=== PATIENT | female | born 1970 | race Caucasian/White ===

== ENCOUNTER 2022-04-14 14:22 | Inpatient (IN) | payer MEDICARE, MEDICAID, SELFPAY ==
[2022-04-14] VITALS (45 sets, daily range): BP systolic 105–157; BP diastolic 56–83; PULSE 87–113; RESP 11–25; TEMP 36.4–36.8; O2SAT 93–100; BMI 25.8; BMI 27.4
--- NOTE | 2022-04-14 14:35 | DI.RAD.S_ITS ---
PROCEDURE: XR CHEST 1V INDICATIONS: suspected sepsis TECHNIQUE: One view of the chest was acquired. COMPARISON: None. FINDINGS: Surgical changes and devices: None. Lungs and pleura: 7 mm nodularity projects over the end of the right 5th rib. Remainder of the lungs and pleural spaces are clear. Mediastinum: Mediastinal contours appear normal. Heart size is normal. Bones and chest wall: No suspicious bony lesions. Overlying soft tissues appear unremarkable. Convex right thoracolumbar scoliosis IMPRESSION: No acute infiltrate, pleural effusion or pneumothorax. Possible small nodule projects over the end of the right 5th rib, may be artifactual. Consider interval follow-up 3 month chest x-ray or CT Approved by: Steve Faustin M.D. on 04/14/2022 at 15:54
[2022-04-14] MEDS: SODIUM CHLORIDE 0.9% 1,000 ML 1000 ML IV (14:45)
[2022-04-14 14:58] LABS: COVID19 -Nasal RAPID Negative (Negative)
[2022-04-14 14:59] LABS: Add Manual Diff / Slide Review NO; Basophils Absolute Auto 100 /uL (0-100); Basophils Percent Auto 0.7 % (0-2); Eosinophils Absolute Auto 0 /uL (0-450); Eosinophils Percent Auto 0.1 % (2-4); Hematocrit 24.9 % (36-46); Hemoglobin 7.9 g/dL (12.0-16.0); Lymphocytes Absolute Auto 1400 /uL (1100-4500); Lymphocytes Percent Auto 9.8 % (25-40); Mean Corpuscular HGB Conc 31.7 % (30-36); Mean Corpuscular Hemoglobin 27.7 PG (26-34); Mean Corpuscular Volume 87.4 fL (80-100); Monocytes Absolute Auto 400 /uL (0-900); Monocytes Percent Auto 2.9 % (3-14); Neutrophils Absolute Auto 12400 /uL (1500-7000); Neutrophils Percent Auto 86.5 % (50-75); Platelet Count 618 X10^3/uL (150-400); Red Blood Cell Count 2.85 X10^6/uL (4.0-5.2); Red Cell Distribution Width 19.7 % (11.6-14.8); White Blood Cell Count 14.4 X10^3/uL (4.5-11.0)
[2022-04-14 15:07] LABS: Prothrombin Time 11.4 SECONDS (10.1-12.7)
--- NOTE | 2022-04-14 15:08 | ED_ITS ---
HPI - Wound/Laceration General Chief Complaint: Wound/Laceration Stated Complaint: weakness, barely move,open wound LT arm & leg Time Seen by Provider: 04/14/22 14:55 Source: patient and family Mode of arrival: Wheelchair Limitations: no limitations History of Present Illness HPI narrative: Patient is a 52-year-old female. History of hypothyroidism. Approximately 1 year ago she had an extensive issue of a skin infection that required debridement. She states that it was necrotizing fasciitis. She spent an ex tended amount of time in the hospital. It was located in her left shoulder. She was on antibiotics. Since that time she states that the wound across her left shoulder has healed but there is a small amount that continues to have issues with healing. She feels like this areas become more painful and that the discomfort and the look of the wounds has worsened over the past couple days. She is also having issues with an open wound on her left leg. She stated that this started after she had a ?bite? from an unknown insect. This was about the time as the issue with her left shoulder. She did not have debridement in this area. She thinks that this wound has been worsening as well. She generally states she does not feel very well. Is having weakness. Related Data Allergies Allergy/AdvReac Type Severity Reaction Status Date / Time levothyroxine Allergy Unknown Verified 04/14/22 15:04 NSAIDS (Non-Steroidal AdvReac Severe Heartburn Verified 04/14/22 15:04 Anti-Inflamma Review of Systems Review of Systems ROS Unobtainable: All systems reviewed & are unremarkable except as noted in HPI and below Patient History Medical History Hypothyroidism Necrotizing fasciitis Paget disease of bone Surgical History (Updated 04/14/22 @ 19:04 by Gerardo Whatley DO) H/O thyroidectomy S/P debridement Family History (Updated 04/14/22 @ 19:04 by Gerardo Whatley DO) Father No pertinent past medical history Mother No pertinent past medical history Exam Initial Vital Signs Initial Vital Signs: Vital Signs Temperature 98.2 F 04/14/22 14:22 Pulse Rate 113 H 04/14/22 14:22 Respiratory Rate 25 H 04/14/22 14:22 Blood Pressure 105/81 04/14/22 14:22 Pulse Oximetry 100 04/14/22 14:22 Oxygen Delivery Method 04/14/22 14:22 Const General: cooperative, comfortable and other (Appears chronically ill) HENMT Head: normal to inspection and normocephalic Resp Effort & Inspection: normal respiratory effort Auscultation: clear to auscultation bilaterally Cardio Rate: tachycardic Rhythm: regular rhythm GI Inspection: normal to inspection Palpation: soft and No tender Skin Other: Patient does have a large area of skin ulceration on the lateral aspect of the left lower leg. There is some minimal surrounding erythema. It is draining and does have a foul smell. There is no fluctuance. Patient also has multiple small areas of ulcerations on her left anterior shoulder. There is a well- healed surgical scar in this area consistent with her stated debridement history. There is surrounding erythema from this area as well. Does have some drainage. Also foul-smelling. Neuro General: patient alert, patient awake and moves all extremities Extrem General: normal to inspection and capillary refill normal Psych Appearance: disheveled Scores GCS Sukhdev coma scale eye opening: Spontaneous Churdan coma scale verbal response: Orientated Churdan coma scale motor response: Obey commands Sukhdev coma scale total score: 15 Course Orders Ordered: ED Orders 04/14/22 14:35 XR chest 1V Stat EKG-12 Lead Stat RT Consult Eval and Treat NOW 04/14/22 14:40 COVID19 -Nasal RAPID/Pre-Proc Stat 04/14/22 14:45 Complete Blood Count AUTO DIFF Stat Comprehensive Metabolic Panel Stat Lactate (Lactic Acid) Stat Lipase Stat Partial Thromboplastin Time Stat Procalcitonin Stat Prothrombin Time INR Stat 04/14/22 14:50 Blood Culture Stat 04/14/22 15:07 Wound Culture and Gram Stain Stat Wound Culture and Gram Stain Stat 04/14/22 15:08 XR humerus LT 2V Stat XR tibia fibula LT 2V Stat 04/14/22 18:28 Consult to General Surgery Stat CT UE LT w con Stat Discontinued Medications Sodium Chloride (Normal Saline 0.9%) 1,000 mls @ 1,000 mls/hr IV BOLUS ONE Stop: 04/14/22 15:34 Last Infusion: 04/14/22 15:52 Dose: 0 mls/hr Documented By: Admin: 04/14/22 14:45 Dose: 1,000 mls/hr Documented By: HARVEY Ceftriaxone Sodium 1,000 mg/ (Sodium Chloride) 100 mls @ 200 mls/hr IV NOW ONE Stop: 04/14/22 15:11 Last Infusion: 04/14/22 15:52 Dose: 0 mls/hr Documented By: Admin: 04/14/22 15:15 Dose: 200 mls/hr Documented By: SB Vancomycin HCl (Vancomycin) 1,000 mg in 200 mls @ 200 mls/hr IV NOW ONE Stop: 04/14/22 16:09 Last Infusion: 04/14/22 17:05 Dose: 0 mls/hr Documented By: Admin: 04/14/22 15:52 Dose: 200 mls/hr Documented By: HARVEY Clindamycin Phosphate (Cleocin) 900 mg in 50 mls @ 50 mls/hr IV NOW ONE Stop: 04/14/22 19:28 Last Admin: 04/14/22 19:14 Dose: 50 mls/hr Documented By: HARVEY Piperacillin Sod/Tazobactam (Sod 4.5 gm/ Sodium Chloride) 100 mls @ 200 mls/hr IV NOW ONE Stop: 04/14/22 18:29 Last Infusion: 04/14/22 19:13 Dose: 0 mls/hr Documented By: Admin: 04/14/22 18:36 Dose: 200 mls/hr Documented By: HARVEY Nicotine (Nicotine 14 Patch) 14 mg TOP NOW ONE Stop: 04/14/22 19:12 Last Admin: 04/14/22 19:44 Dose: 14 mg Documented By: HARVEY Oxycodone/Acetaminophen (Oxycodone/Acetaminophen 5/325 Tablet) 1 tab PO NOW ONE Stop: 04/14/22 16:21 Last Admin: 04/14/22 17:19 Dose: 1 tab Documented By: [facility] Oxycodone/Acetaminophen (Oxycodone/Acetaminophen 5/325 Tablet) 1 tab PO NOW ONE Stop: 04/14/22 19:12 Last Admin: 04/14/22 19:22 Dose: 1 tab Documented By: HARVEY Vital Signs Vital signs: Vital Signs - 8 hr 04/14/22 14:22 04/14/22 14:34 04/14/22 14:37 Temperature 98.2 F Pulse Rate 113 H 107 H Respiratory Rate 25 H Blood Pressure 105/81 105/81 Pulse Oximetry 100 99 Oxygen Delivery Method Room Air 04/14/22 14:40 04/14/22 14:47 04/14/22 14:47 Temperature Pulse Rate 110 H 106 H Respiratory Rate Blood Pressure 115/65 Pulse Oximetry 98 100 Oxygen Delivery Method 04/14/22 14:50 04/14/22 14:50 04/14/22 15:00 Temperature Pulse Rate 108 H Respiratory Rate Blood Pressure 116/66 122/71 Pulse Oximetry 99 Oxygen Delivery Method 04/14/22 15:00 04/14/22 15:10 04/14/22 15:10 Temperature Pulse Rate 111 H 105 H Respiratory Rate 22 Blood Pressure 121/62 Pulse Oximetry 100 99 Oxygen Delivery Method Room Air 04/14/22 15:20 04/14/22 15:20 04/14/22 15:30 Temperature Pulse Rate 104 H Respiratory Rate Blood Pressure 126/64 126/56 L Pulse Oximetry 99 Oxygen Delivery Method 04/14/22 15:30 04/14/22 15:40 04/14/22 15:40 Temperature Pulse Rate 106 H 102 H Respiratory Rate Blood Pressure 136/63 Pulse Oximetry 100 99 Oxygen Delivery Method 04/14/22 15:50 04/14/22 15:50 04/14/22 16:00 Temperature Pulse Rate 100 H Respiratory Rate 11 L Blood Pressure 132/68 130/64 Pulse Oximetry 97 Oxygen Delivery Method 04/14/22 16:00 04/14/22 16:10 04/14/22 16:20 Temperature Pulse Rate 100 H 100 H 97 H Respiratory Rate 12 14 16 Blood Pressure Pulse Oximetry 98 99 97 Oxygen Delivery Method Room Air 04/14/22 16:30 04/14/22 16:40 04/14/22 16:50 Temperature Pulse Rate 97 H 97 H 98 H Respiratory Rate 13 18 17 Blood Pressure Pulse Oximetry 98 96 95 Oxygen Delivery Method 04/14/22 17:00 04/14/22 17:03 04/14/22 17:03 Temperature Pulse Rate 97 H 99 H Respiratory Rate 18 16 Blood Pressure 126/67 Pulse Oximetry 94 96 Oxygen Delivery Method 04/14/22 17:10 04/14/22 17:20 04/14/22 17:30 Temperature Pulse Rate 96 H 97 H Respiratory Rate 17 16 Blood Pressure 142/66 H Pulse Oximetry 95 96 Oxygen Delivery Method 04/14/22 17:30 04/14/22 17:40 04/14/22 17:50 Temperature Pulse Rate 94 H 93 H 95 H Respiratory Rate 20 17 23 Blood Pressure Pulse Oximetry 93 95 94 Oxygen Delivery Method 04/14/22 18:00 04/14/22 18:00 04/14/22 18:10 Temperature Pulse Rate 93 H 101 H Respiratory Rate 18 18 Blood Pressure 132/70 Pulse Oximetry 95 98 Oxygen Delivery Method 04/14/22 18:20 04/14/22 18:30 04/14/22 18:30 Temperature Pulse Rate 100 H 110 H Respiratory Rate 25 H Blood Pressure 157/83 H Pulse Oximetry 97 98 Oxygen Delivery Method 04/14/22 18:40 04/14/22 18:55 04/14/22 18:57 Temperature Pulse Rate 98 H 101 H 97 H Respiratory Rate 23 13 Blood Pressure Pulse Oximetry 98 98 99 Oxygen Delivery Method 04/14/22 18:57 04/14/22 19:00 04/14/22 19:00 Temperature Pulse Rate 98 H Respiratory Rate Blood Pressure 136/72 145/72 H Pulse Oximetry 99 Oxygen Delivery Method 04/14/22 19:10 04/14/22 19:20 04/14/22 19:30 Temperature Pulse Rate 92 H 93 H Respiratory Rate Blood Pressure 138/72 Pulse Oximetry 98 98 Oxygen Delivery Method 04/14/22 19:30 04/14/22 19:40 Temperature Pulse Rate 89 90 Respiratory Rate 12 Blood Pressure Pulse Oximetry 98 97 Oxygen Delivery Method MDM - Wound/Laceration Lab Data Attestation: I reviewed the patient's lab results. 04/14/22 14:45 04/14/22 14:45 Labs: Lab Results 04/14/22 04/14/22 04/14/22 Range/Units 14:40 14:45 14:45 WBC 14.4 H (4.5-11.0) X10^3/uL RBC 2.85 L (4.0-5.2) X10^6/uL Hgb 7.9 L (12.0-16.0) g/dL Hct 24.9 L (36-46) % MCV 87.4 (80-100) fL MCH 27.7 (26-34) PG MCHC 31.7 (30-36) % RDW 19.7 H (11.6-14.8) % Plt Count 618 H (150-400) X10^3/uL Neut % (Auto) 86.5 H (50-75) % Lymph % (Auto) 9.8 L (25-40) % Kemper % (Auto) 2.9 L (3-14) % Eos % (Auto) 0.1 L (2-4) % Baso % (Auto) 0.7 (0-2) % Neut # (Auto) 35380 H (1118-1816) /uL Lymph # (Auto) 1400 (4450-9482) /uL Kemper # (Auto) 400 (0-900) /uL Eos # (Auto) 0 (0-450) /uL Baso # (Auto) 100 (0-100) /uL PT 11.4 (10.1-12.7) SECONDS INR 1.0 (0.9-1.3) APTT 29 (26-36) SECONDS Sodium (137-145) mmol/L Potassium (3.4-5.1) mmol/L Chloride (98-107) mmol/L Carbon Dioxide (22-32) mmol/L BUN (7-17) mg/dL Creatinine (0.52-1.04) mg/dL Estimated GFR (>60) mL/min BUN/Creatinine Ratio (6-22) Glucose (70-100) mg/dL Lactate (0.7-2.1) mmol/L Calcium (8.4-10.2) mg/dL Total Bilirubin (0.2-1.3) mg/dL AST (14-36) IU/L ALT (<35) IU/L Alkaline Phosphatase (38-126) U/L Total Protein (6.3-8.2) g/dL Albumin (3.5-5.0) g/dL Globulin (1.7-4.1) g/dL Albumin/Globulin Ratio (1.0-2.8) Lipase (23-300) U/L Procalcitonin (<0.5) ng/mL SARS-CoV-2 (PCR) Negative (Negative) 04/14/22 04/14/22 Range/Units 14:45 14:45 WBC (4.5-11.0) X10^3/uL RBC (4.0-5.2) X10^6/uL Hgb (12.0-16.0) g/dL Hct (36-46) % MCV (80-100) fL MCH (26-34) PG MCHC (30-36) % RDW (11.6-14.8) % Plt Count (150-400) X10^3/uL Neut % (Auto) (50-75) % Lymph % (Auto) (25-40) % Kemper % (Auto) (3-14) % Eos % (Auto) (2-4) % Baso % (Auto) (0-2) % Neut # (Auto) (3768-6305) /uL Lymph # (Auto) (4006-3499) /uL Kemper # (Auto) (0-900) /uL Eos # (Auto) (0-450) /uL Baso # (Auto) (0-100) /uL PT (10.1-12.7) SECONDS INR (0.9-1.3) APTT (26-36) SECONDS Sodium 140 (137-145) mmol/L Potassium 4.4 (3.4-5.1) mmol/L Chloride 101 (98-107) mmol/L Carbon Dioxide 30 (22-32) mmol/L BUN 14 (7-17) mg/dL Creatinine 0.88 (0.52-1.04) mg/dL Estimated GFR > 60 (>60) mL/min BUN/Creatinine Ratio 15.9 (6-22) Glucose 118 H (70-100) mg/dL Lactate 1.8 (0.7-2.1) mmol/L Calcium 8.8 (8.4-10.2) mg/dL Total Bilirubin 0.2 (0.2-1.3) mg/dL AST 24 (14-36) IU/L ALT 20 (<35) IU/L Alkaline Phosphatase 97 (38-126) U/L Total Protein 6.5 (6.3-8.2) g/dL Albumin 3.6 (3.5-5.0) g/dL Globulin 2.9 (1.7-4.1) g/dL Albumin/Globulin Ratio 1.2 (1.0-2.8) Lipase 180 (23-300) U/L Procalcitonin 0.38 (<0.5) ng/mL SARS-CoV-2 (PCR) (Negative) Imaging Data CT UE: Radiologist's Impression: [address] [address] [address] Scan Report Signed Patient: Vargas,Nabila MR#: [id number] : 1970 Acct:[id number] Age/Sex: 52 / F Date of Service: 04/14/22 Loc: ED Accession Number: [id number] ?? Procedure: CT UE LT w con Ordering Provider: James Martinez D.O. PROCEDURE:? CT UE LT W CON ? INDICATIONS:? eval for abscess left shoulder region.? Soft tissue ulceration seen on same day radiographs of the left humerus ? TECHNIQUE:? After the administration of intravenous contrast, 3 mm axial sections acquired of the left shoulder , with coronal and sagittal reformats. ? ? COMPARISON:? [facility], CR, XR HUMERUS LT 2V, 04/14/2022, 15:14. ? FINDINGS:? Image quality:? Adequate ? Bones:? No acute fracture visualized ? Soft tissues:? No soft tissue abscess/drainable fluid collection identified.? Areas of soft tissue ulceration/wounds are present about the proximal left humerus with associated fat stranding/edema.? Tiny focus of soft tissue gas present anterior upper arm (). ? IMPRESSION:? No soft tissue abscess/drainable fluid collection identified about the left shoulder.? If symptoms persist, follow-up CT may be helpful for further evaluation. ? Tiny focus of soft tissue gas present anterior left upper arm, nonspecific.? Clinical correlation for necrotizing soft tissue infection may be helpful. ? ? Dictated by: Donal Siddiqui M.D. on 04/14/2022 at 19:29 ? ? Approved by: Donal Siddiqui M.D. on 04/14/2022 at 19:36? Extremity x-ray #1: Radiologist's Impression: [address] [address] XRay Report Signed Patient: Nabila Vargas MR#: [id number] : 1970 Acct:[id number] Age/Sex: 52 / F Date of Service: 04/14/22 Loc: ED Accession Number: [id number] ?? Procedure: XR tibia fibula LT 2V Ordering Provider: James Martinez D.O. PROCEDURE:? XR TIBIA FIBULA LT 2V ? INDICATIONS:? eval for free air ? TECHNIQUE:? 2 views of the tibia and fibula were acquired.? ? COMPARISON:? None. ? FINDINGS:? ? Bones:? No fractures or dislocations.? No suspicious bony lesions.? Arthritic changes noted at the knee. Generalized decrease in osseous mineralization noted. ? Soft tissues:? No suspicious soft tissue calcifications or masses.? ? IMPRESSION:? ? No evidence of soft tissue air, fracture or foreign body ? ? ? Approved by: Steve Faustin M.D. on 04/14/2022 at 15:39? Extremity x-ray #2: Radiologist's Impression: [address] [address] XRay Report Signed Patient: Nabila Vargas MR#: [id number] : 1970 Acct:[id number] Age/Sex: 52 / F Date of Service: 04/14/22 Loc: ED Accession Number: [id number] ?? Procedure: XR humerus LT 2V Ordering Provider: James Martinez D.O. PROCEDURE:? XR HUMERUS LT 2V ? INDICATIONS:? eval for free air ? TECHNIQUE:? 2 views of the humerus were acquired.? ? COMPARISON:? None. ? FINDINGS:? ? Bones:? No fractures or dislocations.? No suspicious bony lesions.? ? Soft tissues:? No suspicious soft tissue calcifications.? ? IMPRESSION:? ? Soft tissue ulcer noted over the deltoid.? No evidence of intrasubstance soft tissue air? Approved by: Steve Faustin M.D. on 04/14/2022 at 15:44? Extremity x-ray #3: Radiologist's Impression: [address] [address] XRay Report Signed Patient: Nabila Vargas MR#: [id number] : 1970 Acct:[id number] Age/Sex: 52 / F Date of Service: 04/14/22 Loc: ED Accession Number: [id number] ?? Procedure: XR chest 1V Ordering Provider: James Martinez D.O. PROCEDURE:? XR CHEST 1V ? INDICATIONS:? suspected sepsis ? TECHNIQUE:? One view of the chest was acquired.? ? COMPARISON:? None. ? FINDINGS:? ? Surgical changes and devices:? None.? ? Lungs and pleura:? 7 mm nodularity projects over the end of the right 5th rib.? Remainder of the lungs and pleural spaces are clear. ? Mediastinum:? Mediastinal contours appear normal.? Heart size is normal.? ? Bones and chest wall:? No suspicious bony lesions.? Overlying soft tissues appear unremarkable.? Convex right thoracolumbar scoliosis ? IMPRESSION:? ? No acute infiltrate, pleural effusion or pneumothorax. ? Possible small nodule projects over the end of the right 5th rib, may be sea factual.? Consider interval follow-up 3 month chest x-ray or CT ? ? Approved by: Steve Faustin M.D. on 04/14/2022 at 15:54? ECG Data Attestation: I personally reviewed and interpreted this ECG as follows: Interpretation: Sinus tachycardia Ventricular rate 103 Normal axis Normal QRS Normal QTC No ST T wave changes MDM Narrative Medical decision making narrative: The patient does appear chronically ill. She was tachycardic upon arrival but afebrile. Cultures were obtained. Antibiotics started. Patient is not hypotensive nor dehydrated will hold on the 30 cc/kilos of fluid. Cultures were obtained the wounds. We were able to obtain records from her previous facility does appear that in August of last year she spent an extended period of time at [facility] where she was diagnosed with necrotizing fasciitis. She would an extensive debridement of her left shoulder. It appears that the surgical wound from this area has not completely healed. Somewhat of a difficult time determining when the left lower extremity ulceration started. Apparently this started at similar time as her left upper extremity. The appearance today shows that these wounds are not new but have potentially been worsening over the past couple days. They are very foul-smelling. Cultures were obtained. X-rays do not show any signs of free air. I did discuss the case with Dr. Quintana on-call for General surgery who stated that the patient could be admitted to the medicine service and he would evaluate the patient for potential debridement. I then discussed the case with Dr. Whatley on-call for hospitalist who evaluated the patient here in the emergency department. He requested a CT scan of the left upper extremity. The report this is noted. I did discuss the report of air from the CT scan. This was nonspecific and small. I do have low suspicion for necrotizing fasciitis. He stated that there was still no emergent need for debridement and he would still see the patient after admission. We will admit for further evaluation and treatment. Discharge Plan Departure Patient Disposition: Admitted As Inpatient Clinical Impression: Abscess, Skin ulcer
--- NOTE | 2022-04-14 15:08 | DI.RAD.S_ITS ---
PROCEDURE: XR HUMERUS LT 2V INDICATIONS: eval for free air TECHNIQUE: 2 views of the humerus were acquired. COMPARISON: None. FINDINGS: Bones: No fractures or dislocations. No suspicious bony lesions. Soft tissues: No suspicious soft tissue calcifications. IMPRESSION: Soft tissue ulcer noted over the deltoid. No evidence of intrasubstance soft tissue air Approved by: Steve Faustin M.D. on 04/14/2022 at 15:44
--- NOTE | 2022-04-14 15:08 | DI.RAD.S_ITS ---
PROCEDURE: XR TIBIA FIBULA LT 2V INDICATIONS: eval for free air TECHNIQUE: 2 views of the tibia and fibula were acquired. COMPARISON: None. FINDINGS: Bones: No fractures or dislocations. No suspicious bony lesions. Arthritic changes noted at the knee. Generalized decrease in osseous mineralization noted. Soft tissues: No suspicious soft tissue calcifications or masses. IMPRESSION: No evidence of soft tissue air, fracture or foreign body Approved by: Steve Faustin M.D. on 04/14/2022 at 15:39
[2022-04-14 15:09] LABS: PTT Partial Thromboplastin Tim 29 SECONDS (26-36)
[2022-04-14 15:14] LABS: Lactate (Lactic Acid) 1.8 mmol/L (0.7-2.1)
[2022-04-14 15:15] LABS: Alanine Aminotransferase 20 IU/L (<35); Albumin 3.6 g/dL (3.5-5.0); Albumin Globulin Ratio 1.2 (1.0-2.8); Alkaline Phosphatase 97 U/L (38-126); Aspartate Aminotransferase 24 IU/L (14-36); BUN Creatinine Ratio 15.9 (6-22); Bilirubin Total 0.2 mg/dL (0.2-1.3); Blood Urea Nitrogen 14 mg/dL (7-17); Calcium 8.8 mg/dL (8.4-10.2); Carbon Dioxide 30 mmol/L (22-32); Chloride 101 mmol/L (98-107); Estimated Glomerular Filt Rate > 60 mL/min (>60); Globulin 2.9 g/dL (1.7-4.1); Glucose 118 mg/dL (70-100); HEMOLYSIS < 15 (0-50); Lipase 180 U/L (23-300); Potassium 4.4 mmol/L (3.4-5.1); Sodium 140 mmol/L (137-145); Total Protein 6.5 g/dL (6.3-8.2)
[2022-04-14] MEDS: cefTRIAXone 1,000 MG in SODIUM CHLORIDE 0.9% 100 ML 200 MG IV (15:15)
[2022-04-14 15:32] LABS: Procalcitonin 0.38 ng/mL (<0.5)
[2022-04-14] MEDS: VANCOMYCIN 1,000 MG/200 ML PIGGYBACK 200 MG IV (15:52)
[2022-04-14] MEDS: OXYCODONE/ACETAMINOPHEN 5/325 TABLET 1 TAB PO ×2 (17:19→19:22)
--- NOTE | 2022-04-14 18:28 | DI.CT.S_ITS ---
PROCEDURE: CT UE LT W CON INDICATIONS: eval for abscess left shoulder region. Soft tissue ulceration seen on same day radiographs of the left humerus TECHNIQUE: After the administration of intravenous contrast, 3 mm axial sections acquired of the left shoulder , with coronal and sagittal reformats. COMPARISON: [facility], CR, XR HUMERUS LT 2V, 04/14/2022, 15:14. FINDINGS: Image quality: Adequate Bones: No acute fracture visualized Soft tissues: No soft tissue abscess/drainable fluid collection identified. Areas of soft tissue ulceration/wounds are present about the proximal left humerus with associated fat stranding/edema. Tiny focus of soft tissue gas present anterior upper arm (2/127). IMPRESSION: No soft tissue abscess/drainable fluid collection identified about the left shoulder. If symptoms persist, follow-up CT may be helpful for further evaluation. Tiny focus of soft tissue gas present anterior left upper arm, nonspecific. Clinical correlation for necrotizing soft tissue infection may be helpful. Dictated by: Donal Siddiqui M.D. on 04/14/2022 at 19:29 Approved by: Donal Siddiqui M.D. on 04/14/2022 at 19:36
[2022-04-14] MEDS: PIPERACILLIN/TAZO 4.5 GM in SODIUM CHLORIDE 0.9% 100 ML IV (18:36)
--- NOTE | 2022-04-14 19:01 | PM.HP.1 ---
History of Present Illness History of Present Illness Date Patient Seen: 04/14/22 Time Patient Seen: 18:30 Chief complaint: weakness, barely move,open wound LT arm & leg Narrative: This is a 52-year-old female a past medical history necrotizing fasciitis approximately 1 year ago, surgically managed at [facility] with residual wounds in her left leg and left arm, hypertension, hypothyroidism, paget's disease who presented with worsening pain of her left leg and left arm over the past 2 weeks as well as increases in the size of her wounds on her left leg and left arm. She has felt feverish at home, with worsening swelling with a past day or so and worsening pain in her left arm more so than her leg. Her left arm had been well healing, though she has a chronic wound it has increased in size, approximately double in the past couple of days with worsening erythema, and pain. Any purulence from her left arm. Her left leg wound has also approximately doubled in size, and she does complain of cramping like pain with exertion in her left leg. She is had a more difficult time walking due to the pain the last few days. The chest pain, abdominal pain, dysuria, or urinary frequency. Over the past few weeks she has felt more short of breath with exertion. She follows with Wound Care at [facility], and is being evaluated by Plastic surgery in [place] for her wounds. In the emergency room, the patient's vital signs were unremarkable, laboratory evaluation was notable for leukocytosis with WBC 14.4, anemia with hemoglobin of 7.9, and platelet count of 618. Coagulation studies were unremarkable. History is were unremarkable, procalcitonin was 0.38, and COVID-19 testing was negative. Initial radiographs were negative for gas or evidence of bone involvement. Given appearance of her left arm I asked for a CT scan of her left upper extremity which did show nonspecific gas, though this was discussed with the surgeon on-call who will see the morning and given her current clinical appearance this is not consistent with necrotizing fasciitis. Patient History Medical History Hypothyroidism Necrotizing fasciitis Paget disease of bone Surgical History H/O thyroidectomy S/P debridement Family & Social History Family History Father No pertinent past medical history Mother No pertinent past medical history Safety & Behavioral: Feels Safe in Current Yes Environment Been Physically Hurt or No Threatened By a Person Meds Home Medications and Allergies Allergies Allergy/AdvReac Type Severity Reaction Status Date / Time levothyroxine Allergy Unknown Verified 04/14/22 15:04 NSAIDS (Non-Steroidal AdvReac Severe Heartburn Verified 04/14/22 15:04 Anti-Inflamma Review of Systems Review of Systems Narrative: All other systems reviewed with the patient and are negative unless otherwise stated. Exam Vital Signs (past 8 hours): - 04/14/22 14:22 04/14/22 14:34 04/14/22 14:37 Temperature 98.2 F Pulse Rate 113 H 107 H Respiratory Rate 25 H Blood Pressure 105/81 105/81 Pulse Oximetry 100 99 Oxygen Delivery Method Room Air 04/14/22 14:40 04/14/22 14:47 04/14/22 14:47 Temperature Pulse Rate 110 H 106 H Respiratory Rate Blood Pressure 115/65 Pulse Oximetry 98 100 Oxygen Delivery Method 04/14/22 14:50 04/14/22 14:50 04/14/22 15:00 Temperature Pulse Rate 108 H Respiratory Rate Blood Pressure 116/66 122/71 Pulse Oximetry 99 Oxygen Delivery Method 04/14/22 15:00 04/14/22 15:10 04/14/22 15:10 Temperature Pulse Rate 111 H 105 H Respiratory Rate 22 Blood Pressure 121/62 Pulse Oximetry 100 99 Oxygen Delivery Method Room Air 04/14/22 15:20 04/14/22 15:20 04/14/22 15:30 Temperature Pulse Rate 104 H Respiratory Rate Blood Pressure 126/64 126/56 L Pulse Oximetry 99 Oxygen Delivery Method 04/14/22 15:30 04/14/22 15:40 04/14/22 15:40 Temperature Pulse Rate 106 H 102 H Respiratory Rate Blood Pressure 136/63 Pulse Oximetry 100 99 Oxygen Delivery Method 04/14/22 15:50 04/14/22 15:50 04/14/22 16:00 Temperature Pulse Rate 100 H Respiratory Rate 11 L Blood Pressure 132/68 130/64 Pulse Oximetry 97 Oxygen Delivery Method 04/14/22 16:00 04/14/22 16:10 04/14/22 16:20 Temperature Pulse Rate 100 H 100 H 97 H Respiratory Rate 12 14 16 Blood Pressure Pulse Oximetry 98 99 97 Oxygen Delivery Method Room Air 04/14/22 16:30 04/14/22 16:40 04/14/22 16:50 Temperature Pulse Rate 97 H 97 H 98 H Respiratory Rate 13 18 17 Blood Pressure Pulse Oximetry 98 96 95 Oxygen Delivery Method 04/14/22 17:00 04/14/22 17:03 04/14/22 17:03 Temperature Pulse Rate 97 H 99 H Respiratory Rate 18 16 Blood Pressure 126/67 Pulse Oximetry 94 96 Oxygen Delivery Method 04/14/22 17:10 04/14/22 17:20 04/14/22 17:30 Temperature Pulse Rate 96 H 97 H Respiratory Rate 17 16 Blood Pressure 142/66 H Pulse Oximetry 95 96 Oxygen Delivery Method 04/14/22 17:30 04/14/22 17:40 04/14/22 17:50 Temperature Pulse Rate 94 H 93 H 95 H Respiratory Rate 20 17 23 Blood Pressure Pulse Oximetry 93 95 94 Oxygen Delivery Method 04/14/22 18:00 04/14/22 18:00 04/14/22 18:10 Temperature Pulse Rate 93 H 101 H Respiratory Rate 18 18 Blood Pressure 132/70 Pulse Oximetry 95 98 Oxygen Delivery Method 04/14/22 18:20 04/14/22 18:30 04/14/22 18:30 Temperature Pulse Rate 100 H 110 H Respiratory Rate 25 H Blood Pressure 157/83 H Pulse Oximetry 97 98 Oxygen Delivery Method 04/14/22 18:40 04/14/22 18:55 Temperature Pulse Rate 98 H 101 H Respiratory Rate 23 Blood Pressure Pulse Oximetry 98 98 Oxygen Delivery Method Oxygen Delivery Method Room Air Narrative Exam Narrative: General:? Patient is well developed and well nourished, in no distress at this time. HEENT:? Normocephalic, atraumatic, extraocular muscles intact, oral pharynx is clear and mucous membranes are moist. Neck: supple and symmetric, trachea is midline, no cervical adenopathy. Negative for JVD Chest:? Normal AP diameter and contour without kyphoscoliosis, no tachypnea, equal chest rise bilaterally. Lungs:? CTA b/l no wheezing rhonchi or rales. Cardio:?RRR no m/r/g. Abdomen: S NT ND. No CVA tenderness. Musculoskeletal:? Muscle strength and tone are equal within normal limits, no deformity. Extremities: No edema or joint effusions. No cyanosis or clubbing. Skin:? Pale,? Warm to touch,dry and intact without rashes, ulcerations or petechiae.? Neuro:? Alert and orientated x3,? sensation to touch intact in all extremities, no gross deficits noted of cranial nerves. Psych:? Patient has a well-kept appearance, appropriate affect, mental status attitude thought context and judgment are appropriate for age. Objective Labs 04/14/22 14:45 04/14/22 14:45 Labs: Laboratory Results - last 24 hr 04/14/22 04/14/22 04/14/22 14:40 14:45 14:45 WBC 14.4 H RBC 2.85 L Hgb 7.9 L Hct 24.9 L MCV 87.4 MCH 27.7 MCHC 31.7 RDW 19.7 H Plt Count 618 H Neut % (Auto) 86.5 H Lymph % (Auto) 9.8 L [place] % (Auto) 2.9 L Eos % (Auto) 0.1 L Baso % (Auto) 0.7 Neut # (Auto) 58190 H Lymph # (Auto) 1400 [place] # (Auto) 400 Eos # (Auto) 0 Baso # (Auto) 100 PT 11.4 INR 1.0 APTT 29 Sodium Potassium Chloride Carbon Dioxide BUN Creatinine Estimated GFR BUN/Creatinine Ratio Glucose Lactate Calcium Total Bilirubin AST ALT Alkaline Phosphatase Total Protein Albumin Globulin Albumin/Globulin Ratio Lipase Procalcitonin SARS-CoV-2 (PCR) Negative 04/14/22 04/14/22 14:45 14:45 WBC RBC Hgb Hct MCV MCH MCHC RDW Plt Count Neut % (Auto) Lymph % (Auto) [place] % (Auto) Eos % (Auto) Baso % (Auto) Neut # (Auto) Lymph # (Auto) [place] # (Auto) Eos # (Auto) Baso # (Auto) PT INR APTT Sodium 140 Potassium 4.4 Chloride 101 Carbon Dioxide 30 BUN 14 Creatinine 0.88 Estimated GFR > 60 BUN/Creatinine Ratio 15.9 Glucose 118 H Lactate 1.8 Calcium 8.8 Total Bilirubin 0.2 AST 24 ALT 20 Alkaline Phosphatase 97 Total Protein 6.5 Albumin 3.6 Globulin 2.9 Albumin/Globulin Ratio 1.2 Lipase 180 Procalcitonin 0.38 SARS-CoV-2 (PCR) Assessment & Plan Assessment & Plan narrative: 1. Left lower extremity and left upper extremity infected wounds - continue zosyn at pseudomonal dosing, clinda, and vanc for possible necrotitzing infection given gas on CT, however it is very near her chronic wounds and seems less likely at this time. - monitor skin exam overnight - if worsening clinically call for possible debridement, case already discussed with on-call surgeon, whom plans to see in the AM currently 2. Hypertension, chronic - hold home medications for now given current infection. 3. hypothyroidism, chronic - continue home armor thyroid 4. Chronic pain, paget's - continue home prednisone 5. Anemia, unknown acuity Hg 7.9, continue to monitor, may be source of patient's recent dyspnea. Code: FULL, surrogate is patient's sposue DVT: lovenox daily I have utilized all available immediate resources to obtain, update, or review the patient's current medications. Additional history obtained via: patient's spouse, discussed with surgeon and ER provider. Time Spent With Patient Critical Care time: I spent a total of [] minutes of critical care time on this patient's care today; this time is exclusive of procedural time. Quality MIPS - Admit I confirm the patient?s Advance Care Plan is present, Code status is documented, Surrogate decision maker is in patient?s record [If Yes, STOP here]: Yes
[2022-04-14] MEDS: CLINDAMYCIN 900 MG/50 ML PIGGYBACK 50 MG IV (19:14)
[2022-04-14] MEDS: NICOTINE 14 PATCH 14 MG TOP (19:44)
[2022-04-14] MEDS: HYDROCODONE/ACET 5/325 TABLET 2 TAB PO (22:23)
--- NOTE | 2022-04-14 23:43 | PC.NURSE ---
Addendum entered by Katia Humphreys R.N. 04/14/22 23:50: Left shoulder wound with necrotic tissue all over it two deep areas. with 2nd wound to axilla area that's completely cover in eschar tissue Addendum entered by Katia Humphreys R.N. 04/14/22 23:44: Comment: Left shoulder wound Original Note:
--- NOTE | 2022-04-14 23:45 | PC.NURSE ---
Comment: Left Lateral leg wound with 1 cm tunneling around the right upper edges. with necrotic tissue around edges and moderate yellowish drainage.
[2022-04-15] VITALS (12 sets, daily range): BP systolic 125–159; BP diastolic 76–100; PULSE 94–116; RESP 12–23; TEMP 36.1–36.7; O2SAT 94–99; BMI 27.4
--- NOTE | 2022-04-15 | PATH_ITS ---
[facility] Accession Number: [id number] No. of containers..02 Tissue . 01 Material submitted: . PART A: leg - LEFT LOWER LEG BIOPSY PART B: shoulder - LEFT SHOULDER BIOPSY . 01 Diagnosis: A, B. Left Lower Leg and Left Shoulder, Biopsies: Ulcer bed with reactive changes, fibrosis, acute and chronic inflammation and scale crust. . Note: The changes are nonspecific. Clinicopathological correlation is advised for definitive diagnosis. MRV 04/22/20222 Local . 01 Electronically signed: . Lesvia Feliciano MD, Dermatopathologist NPI- [id number] . 01 Gross description: . Part A: LEFT LOWER LEG BIOPSY: Received in formalin is 1 piece of SEGMENT OF SKIN measuring 2.0 x 0.5 x 0.2 cm which is inked, serially sectioned and submitted in toto in 2 cassettes. Part B: LEFT SHOULDER BIOPSY: Received in formalin is 1 piece of SEGMENT OF SKIN measuring 0.9 x 0.5 x 0.2 cm which is inked, trisected and submitted in toto in 1 cassette. /CPE 04/16/2022 0516 Local . 01 Pathologist provided ICD-10: R23.9 . 01 CPT . 066759, 900592 Specimen Comment: A courtesy copy of this report has been sent to [facility] Performed at: 01 [facility] [address] [place] [address], [place], [place] [id number] MD Kranthi Sue MD Phone: [phone]
[2022-04-15] MEDS: PIPERACILLIN/TAZO 4.5 GM in SODIUM CHLORIDE 0.9% 100 ML IV ×3 (00:01→23:10)
[2022-04-15] MEDS: HYDROCODONE/ACET 5/325 TABLET 2 TAB PO ×2 (03:43→08:01)
[2022-04-15] MEDS: CLINDAMYCIN 600 MG/50 ML PIGGYBACK 50 MG IV ×3 (04:17→21:52)
[2022-04-15] MEDS: HYDROMORPHONE 1 MG INJ IV ×7 (05:25→23:09)
[2022-04-15] MEDS: VANCOMYCIN 1,250 MG/250 ML PIGGYBACK 250 MG IV ×2 (05:25→19:11)
[2022-04-15 06:22] LABS: Alanine Aminotransferase 17 IU/L (<35); Albumin Globulin Ratio 1.1 (1.0-2.8); Alkaline Phosphatase 62 U/L (38-126); Aspartate Aminotransferase 19 IU/L (14-36); BUN Creatinine Ratio 16.9 (6-22); Bilirubin Total 0.1 mg/dL (0.2-1.3); Blood Urea Nitrogen 12 mg/dL (7-17); Calcium 8.3 mg/dL (8.4-10.2); Carbon Dioxide 29 mmol/L (22-32); Chloride 103 mmol/L (98-107); Estimated Glomerular Filt Rate > 60 mL/min (>60); Globulin 2.7 g/dL (1.7-4.1); Glucose 92 mg/dL (70-100); HEMOLYSIS < 15 (0-50); Magnesium 2.2 mg/dL (1.6-2.3); Potassium 3.8 mmol/L (3.4-5.1); Sodium 141 mmol/L (137-145); Total Protein 5.7 g/dL (6.3-8.2)
[2022-04-15 06:27] LABS: Add Manual Diff / Slide Review NO; Basophils Absolute Auto 0 /uL (0-100); Basophils Percent Auto 0.3 % (0-2); Eosinophils Absolute Auto 200 /uL (0-450); Eosinophils Percent Auto 1.7 % (2-4); Hematocrit 23.2 % (36-46); Hemoglobin 7.3 g/dL (12.0-16.0); Lymphocytes Absolute Auto 2800 /uL (1100-4500); Lymphocytes Percent Auto 28.3 % (25-40); Mean Corpuscular HGB Conc 31.5 % (30-36); Mean Corpuscular Volume 88.8 fL (80-100); Monocytes Absolute Auto 700 /uL (0-900); Monocytes Percent Auto 7.1 % (3-14); Neutrophils Absolute Auto 6200 /uL (1500-7000); Neutrophils Percent Auto 62.6 % (50-75); Platelet Count 490 X10^3/uL (150-400); Red Blood Cell Count 2.61 X10^6/uL (4.0-5.2); Red Cell Distribution Width 19.7 % (11.6-14.8); White Blood Cell Count 9.9 X10^3/uL (4.5-11.0)
[2022-04-15 06:52] LABS: Hemoglobin A1C% w Est Avg Glu 4.9 % (4.0-6.0)
--- NOTE | 2022-04-15 09:31 | PC.NURSE ---
Lidocaine gel arrived from pharmacy and was about to be placed to wound bed as directed but arrived at same time as preop RN's to pick patient up- nurse states she is able to place lidocaine in preop area. Patient taken off unit for her procedure. Medicated with IV dilaudid for severe pain. Patient states she has no had anything to eat or drink since about 5am.
--- NOTE | 2022-04-15 10:09 | P.CONS_ITS ---
History of Present Illness Consult details Date Patient Seen: 04/15/22 Chief complaint: weakness, barely move,open wound LT arm & leg Reason for consult: Necrotic wound Requesting provider: Gerardo Whatley Narrative: Mrs. Vargas is a 52-year-old female who presented to the emergency room as she was feeling more tired than usual and started having some pretty severe pain in her wounds. She has a wound in her left upper extremity as well as 1 in her left lower extremity. The left lower is the more tender. She had been admitted and treated at [facility] in after having been transferred from [facility] in August for necrotizing soft tissue infection she underwent several debridements at that time and also a delayed primary closure of her left upper extremity. From her perspective she tells a story about being immune comprom ised and seeing some some bugs or ticks jump onto her and start this infection at a dog park. She did undergo evaluation for psychosis at [facility]. She has had a history of mouth ulcers and has been diagnosed with a Bechet syndrome, a rare autoimmune vasculitis, and also with psoriasis. There was a dermatology consult from 12/18/2021 at which biopsies were taken and possible diagnosis of pyoderma gangrenosum proposed. Pathology results from the biopsy support this diagnosis but are not completely diagnostic. In addition to what is noted above, there is a huge stack of medical records from [facility] which I have yet to review. Meds Home Medications and Allergies Home Medications Medication Instructions Recorded Confirmed Type Eliquis 5 mg PO BID 04/14/22 04/14/22 History albendazole 200 mg tablet 200 mg BID 04/14/22 04/14/22 History colchicine 0.6 mg tablet 0.69 mg DAILY 04/14/22 04/14/22 History duloxetine 60 mg capsule,delayed 60 mg PO DAILY 04/14/22 04/14/22 History release ivermectin 3 mg tablet 12 mg DAILY 04/14/22 04/14/22 History metoprolol succinate 25 mg 25 mg PO BID 04/14/22 04/14/22 History tablet,extended release 24 hr oxycodone-acetaminophen 10 mg-325 10 - 325 tab 5XD 04/14/22 04/14/22 History mg tablet pentoxifylline 400 mg 400 mg PO BID 04/14/22 04/14/22 History tablet,extended release prednisone 20 mg tablet 20 mg DAILY 04/14/22 04/14/22 History pregabalin 300 mg capsule 300 mg BID 04/14/22 04/14/22 History thyroid (pork) 30 mg tablet 120 mg DAILY 04/14/22 04/14/22 History ([place] Thyroid) Allergies Allergy/AdvReac Type Severity Reaction Status Date / Time levothyroxine Allergy Unknown Verified 04/14/22 15:04 NSAIDS (Non-Steroidal AdvReac Severe Heartburn Verified 04/14/22 15:04 Anti-Inflamma Exam Vital Signs (past 8 hours): - 04/15/22 04:04 04/15/22 07:52 04/15/22 09:48 Temperature 97.3 F L 96.9 F L 97.9 F Pulse Rate 99 H 94 H 96 H Respiratory Rate 17 23 16 Blood Pressure 125/86 159/91 H 142/76 H Pulse Oximetry 98 99 97 Oxygen Delivery Method Room Air Oxygen Flow Rate 0 0 Oxygen Delivery Method Room Air Oxygen Flow Rate 0 Narrative Exam Narrative: Patient is awake alert oriented and appears appropriate. I do not see any evidence of psychosis or mental illness evidence from my interactions with her at this time. She is in mild distress with pain. Her breathing is nonlabored on room air and her radial pulse is palpable. Her oral mucous membranes are moist She has a wound in her left upper extremity and 1 in her left lower extremity The left upper extremity wound has several areas of necrotic eschar on it and some seeping discharge. The left lower extremity wound has a little bit of fibrinous material and small amount of eschar but mostly is just an area where it looks like a skin blister or lesion was and is missing the epidermal layer otherwise it looks pretty clean . Objective Labs 04/15/22 05:52 04/15/22 05:52 Labs: Laboratory Results - last 24 hr 04/14/22 04/14/22 04/14/22 14:40 14:45 14:45 WBC 14.4 H RBC 2.85 L Hgb 7.9 L Hct 24.9 L MCV 87.4 MCH 27.7 MCHC 31.7 RDW 19.7 H Plt Count 618 H Neut % (Auto) 86.5 H Lymph % (Auto) 9.8 L [place] % (Auto) 2.9 L Eos % (Auto) 0.1 L Baso % (Auto) 0.7 Neut # (Auto) 05333 H Lymph # (Auto) 1400 [place] # (Auto) 400 Eos # (Auto) 0 Baso # (Auto) 100 PT 11.4 INR 1.0 APTT 29 Sodium Potassium Chloride Carbon Dioxide BUN Creatinine Estimated GFR BUN/Creatinine Ratio Glucose Hemoglobin A1c Lactate Calcium Magnesium Total Bilirubin AST ALT Alkaline Phosphatase Total Protein Albumin Globulin Albumin/Globulin Ratio Lipase Procalcitonin SARS-CoV-2 (PCR) Negative 04/14/22 04/14/22 04/15/22 14:45 14:45 05:52 WBC 9.9 RBC 2.61 L Hgb 7.3 L Hct 23.2 L MCV 88.8 MCH 28.0 MCHC 31.5 RDW 19.7 H Plt Count 490 H Neut % (Auto) 62.6 D Lymph % (Auto) 28.3 [place] % (Auto) 7.1 Eos % (Auto) 1.7 L Baso % (Auto) 0.3 Neut # (Auto) 6200 Lymph # (Auto) 2800 [place] # (Auto) 700 Eos # (Auto) 200 Baso # (Auto) 0 PT INR APTT Sodium 140 Potassium 4.4 Chloride 101 Carbon Dioxide 30 BUN 14 Creatinine 0.88 Estimated GFR > 60 BUN/Creatinine Ratio 15.9 Glucose 118 H Hemoglobin A1c Lactate 1.8 Calcium 8.8 Magnesium Total Bilirubin 0.2 AST 24 ALT 20 Alkaline Phosphatase 97 Total Protein 6.5 Albumin 3.6 Globulin 2.9 Albumin/Globulin Ratio 1.2 Lipase 180 Procalcitonin 0.38 SARS-CoV-2 (PCR) 04/15/22 04/15/22 05:52 05:52 WBC RBC Hgb Hct MCV MCH MCHC RDW Plt Count Neut % (Auto) Lymph % (Auto) [place] % (Auto) Eos % (Auto) Baso % (Auto) Neut # (Auto) Lymph # (Auto) [place] # (Auto) Eos # (Auto) Baso # (Auto) PT INR APTT Sodium 141 Potassium 3.8 Chloride 103 Carbon Dioxide 29 BUN 12 Creatinine 0.71 Estimated GFR > 60 BUN/Creatinine Ratio 16.9 Glucose 92 Hemoglobin A1c 4.9 Lactate Calcium 8.3 L Magnesium 2.2 Total Bilirubin 0.1 L AST 19 ALT 17 Alkaline Phosphatase 62 Total Protein 5.7 L Albumin 3.0 L Globulin 2.7 Albumin/Globulin Ratio 1.1 Lipase Procalcitonin SARS-CoV-2 (PCR) [facility] Medical History (Updated 04/15/22 @ 10:23 by Krystle Parker MD) Hypothyroidism Migraine Necrotizing fasciitis Paget disease of bone Pulmonary embolism Surgical History H/O thyroidectomy S/P debridement Family History Father No pertinent past medical history Mother No pertinent past medical history Social History household members: none Tobacco & Substance Use Smoking Status: Former smoker alcohol intake: former Assessment & Plan Assessment and plan (1) Skin ulcer: Status: Acute (2) Necrosis of surgical wound: Status: Acute Assessment & Plan narrative: I think based on the appearance of these wounds I would like to do some gentle debridement of the eschar/necrotic areas. I discussed this with the patient r isks just being poor wound healing or need for further procedures. Some bleeding is possible though given the superficial nature no anticipation of any major bleeding. She is on anticoagulants and I think that is fine to continue. She understands what I would like to do and the risks and would like to proceed with that. I think she is decisional. I would continue the antibiotics. I have reviewed a CT scan of the left upper extremity and I do not see any large abscess cavity that needs to be opened surgically. Time Spent With Patient Critical Care time: I spent a total of [] minutes of critical care time on this patient's care today; this time is exclusive of procedural time.
--- NOTE | 2022-04-15 11:46 | CM.DANOTE ---
DCP: Case received, EMR reviewed and met with patient. Introduced self and role. Was able to obtain information regarding patient's baseline activity status prior to hospitalization, as well as her current living situation. DCP assessment completed with information currently available. Patient is a 52 year old female who admitted yesterday evening to the care of the hospitalist team. PCP: Dr. Pearson. Payer: confirmed: Medicare/Medicaid out of state in [place]. Patient came to the hospital via private vehicle secondary to increased pain to her left shoulder, as well as an open wound on her left let. Patient has history of necrotizing fascitis, and had spent an extended amound of time in the hospital. Patient feels that the wounds have gotten worse. Patient currently goes to the wound clinic at [facility] weekly, and to [place], and is seeing plastic surgeon. Patient was admitted for her skin wounds, and should be having an I&D today. Met with patient in her room. She was laying in bed, alert and oriented, wound to left anterior lower leg opened. Confirmed that she resides in [facility] alone, but has a significant other, Dale Delarosa. At her baseline, she is independent. Asked her about insurance, for it was first noted as self pay and that her Medicaid . Confirmed that she has Medicare, her significant was going to bring in her cards, and her Medicaid is out of state, [place]. Updated admission counselors, who responded and have the insurance information. P: DCP to continue to follow, patient should be able to go home when stable, but will determine if she can discharge on oral antibiotics. Zully Pierson RN/Farmworker Grain Discharge Planning/Care Management CM Discharge Assessment Start: 04/15/22 11:44 Freq: Status: Active Protocol: Document 04/15/22 11:44 (Rec: 04/15/22 11:46 [id number]) Discharge Planning Assessment Assigned Professional Nursing Assistant Zully Pierson RN/Farmworker [employer] Advance Directives? No History Provided By Patient Prior Living Arrangements RV Household Members none Type of transporation used prior to Drives own vehicle admit Independent with ADL's Yes Is patient alert and oriented? Yes Caregiver for Another No Comment Patient to continue outpatient wound clinic services at [facility], and in [place] Comment Will have to see if patient will need to go home with IV ABO. Discharge Plan Home Transportation Arrangement Significant other, Fearing. Referrals Initiated None needed Whiteboard Updated in Patient Room with Yes name and ext. # of Professional Nursing Assistant Review Status In Process Next Review Type Continued Stay Review
[2022-04-15] MEDS: SODIUM CHLORIDE 0.9% FLUSH 10 ML IV (11:56)
--- NOTE | 2022-04-15 12:03 | PC.NURSE ---
Patient brought back up from preop, per Claribel in PACU no procedure was done. Patient arrived to room, tearful, states they did not believe her that she did not eat any food this morning. Reports she last had a few bites of applesauce with her medications about 5am. Patient in severe pain, in wounds, and reports its worse in left lower leg. Medicated with IV dilaudid per order. VSS, 99% on RA. Dr. Parker now at bedside meeting with patient.
--- NOTE | 2022-04-15 16:48 | PC.NURSE ---
Patient picked up for her procedure.
[2022-04-15] MEDS: LACTATED RINGERS 1,000 ML 42 ML IV (16:55)
--- NOTE | 2022-04-15 17:10 | SUR.HOLD ---
Dr Rabago at bedside. Has severe migraine and takes Sumatriptan and rizatriptan at home. See new order.
[2022-04-15] MEDS: SUMAtriptan 25 MG TABLET 100 MG PO (17:13)
--- NOTE | 2022-04-15 17:31 | PM.PN.1 ---
Subjective Subjective Date Patient Seen: 04/15/22 Interval history: 52 year old female admitted with increasing left sided upper and lower extremity wounds, infected, with cellulitis. Improved slightly today. Plan for OR today for mild debridement of necrotic tissue with general surgery. Exam Vital Signs (past 8 hours): - 04/15/22 09:48 04/15/22 13:26 04/15/22 16:52 Temperature 97.9 F 98.1 F Pulse Rate 96 H 115 H Respiratory Rate 16 20 Blood Pressure 142/76 H 136/86 Pulse Oximetry 97 99 98 Oxygen Delivery Method Room Air Room Air Room Air Oxygen Delivery Method Room Air Oxygen Flow Rate 0 Narrative Exam Narrative: General:? Patient is well developed and well nourished, in no distress at this time. HEENT:? Normocephalic, atraumatic, extraocular muscles intact, oral pharynx is clear and mucous membranes are moist. Neck: supple and symmetric, trachea is midline, no cervical adenopathy. Negative for JVD Chest:? Normal AP diameter and contour without kyphoscoliosis, no tachypnea, equal chest rise bilaterally. Lungs:? CTA b/l no wheezing rhonchi or rales. Cardio: tachycardic and regular rhythm, no m/r/g. Abdomen: S NT ND. Musculoskeletal:? Muscle strength and tone are equal within normal limits, no deformity. Extremities: No edema or joint effusions. No cyanosis or clubbing. Skin: Left upper arm arm improvement in erythema, small area of necrotic tissue, cellulitis improved. Left leg ulceration with raised border, small amount of necrotic tissue, mild surrounding erythema. Neuro:? Alert and orientated x3,? sensation to touch intact in all extremities, no gross deficits noted of cranial nerves. Psych:? Patient has a well-kept appearance, appropriate affect, mental status attitude thought context and judgment are appropriate for age. Objective Labs 04/15/22 05:52 04/15/22 05:52 Labs: Laboratory Results - last 24 hr 04/15/22 04/15/22 04/15/22 05:52 05:52 05:52 WBC 9.9 RBC 2.61 L Hgb 7.3 L Hct 23.2 L MCV 88.8 MCH 28.0 MCHC 31.5 RDW 19.7 H Plt Count 490 H Neut % (Auto) 62.6 D Lymph % (Auto) 28.3 Burt % (Auto) 7.1 Eos % (Auto) 1.7 L Baso % (Auto) 0.3 Neut # (Auto) 6200 Lymph # (Auto) 2800 Burt # (Auto) 700 Eos # (Auto) 200 Baso # (Auto) 0 Sodium 141 Potassium 3.8 Chloride 103 Carbon Dioxide 29 BUN 12 Creatinine 0.71 Estimated GFR > 60 BUN/Creatinine Ratio 16.9 Glucose 92 Hemoglobin A1c 4.9 Calcium 8.3 L Magnesium 2.2 Total Bilirubin 0.1 L AST 19 ALT 17 Alkaline Phosphatase 62 Total Protein 5.7 L Albumin 3.0 L Globulin 2.7 Albumin/Globulin Ratio 1.1 [facility] Medical History (Updated 04/15/22 @ 17:34 by Gerardo Whatley DO) Behcet's disease Hypothyroidism Migraine Necrotizing fasciitis Pulmonary embolism Surgical History H/O thyroidectomy S/P debridement Family History Father No pertinent past medical history Mother No pertinent past medical history Social History household members: none Smoking Status: Former smoker alcohol intake: former Assessment & Plan Assessment & Plan narrative: 1. Left lower extremity and left upper extremity infected wounds - continue zosyn at pseudomonal dosing, clinda, and vanc for possible necrotitzing infection given gas on CT, however it is very near her chronic wounds and seems less likely at this time. General surgery to perform debridement of necrotic tissue today. - wound culture with gram negative rods - can likely discontinue clindamycin after 48 hours (tomorrow) given improvement on exam today - unclear if leg wound is worsened recently due to active infection or behchet's. Continue oral prednisone for now, presume infection more likely given gram negative rods. 2. Hypertension, chronic - hold home medications for now given current infection. 3. hypothyroidism, chronic - continue home armor thyroid 4. Chronic pain, behchet's - continue home prednisone at current dosing for now. 5. Anemia, unknown acuity Hg 7.9, continue to monitor, may be source of patient's recent dyspnea. Down to 7.3 today. Continue to follow. No evidence of active bleeding. Code: FULL, surrogate is patient's sposue DVT: patient on apixaban at home, holding for debridement. Unclear why she is on apixaban and unable to find in outpatient records review thus far, though documentation is extensive. Would hold prior to debridement for now, restart after. I have utilized all available immediate resources to obtain, update, or review the patient's current medications. Discussed with surgery today. Time Spent With Patient Critical Care time: I spent a total of [] minutes of critical care time on this patient's care today; this time is exclusive of procedural time.
--- NOTE | 2022-04-15 17:54 | SUR.OPER ---
Supine on padded OR bed, head on pillow, arms secured on padded arm boards at <90 degrees abduction, legs uncrossed, safety belt at waist tape over blanket over lower right leg, left leg draped free with bump under left hip.
[2022-04-15] MEDS: BUPIVACAINE 0.5% W/ EPI (PF) 30 ML VIAL INJ (18:20)
--- NOTE | 2022-04-15 18:30 | PM.OP.1 ---
Operative Date/Time/Diagnoses Time of procedure: 18:30 Post-op diagnosis: same Procedure & Clinicians Procedure: Debridement of wound and biopsy of left upper and left lower extremity ulcers. Same procedure as scheduled: Yes Indications: necrotic tissue and ulcer. Surgeon: Krystle Parker Click Yes if Unassisted: Yes Anesthesia Type: General Operative Notes Findings: Wounds 1. Left upper: by the shoulder and extending somewhat into the axilla there are 2 portions of that one is 7 x 5 x 3 cm in depth the 1 closer to the axilla is 5 by 3 x 1 cm in depth 2. Left lower extremity wound is 20 cm by 14 cm and 1 cm depth with undermining around the edges of it especially inferior and superior leaf. The undermining at these but is 3 cm in depth superior and 4 cm in depth inferior Closure Type: not applicable Specimen(s): none sent (Biopsy specimens were sent separately of the ulcer edges from both upper and lower extremities. Additionally tissue from each of the ulcers was sent for culture and for fungal stains.) Procedure in detail: Patient was taken to the operating room and placed supine on the operating room table no SCD was placed on the left leg due to the wound. She is on IV antibiotics no additional were given or indicated. A time-out was performed and general endotracheal anesthesia was induced. The wounds were prepped and draped in the usual fashion with an iodine prep. The 1st thing that we did was prepped the leg wound and using Metzenbaum scissors I very gently removed small portions of completely necrotic skin. I attempted not to cause any bleeding or on necessary trauma in doing this. Next I biopsied the inferior portion of the ulcer because this area appeared to be the most affected area. I biopsied the ulcer edge and included some of the underlying subcutaneous tissue in the specimen. I used electrocautery for bleeding around the biopsy and ultimately placed 2 interrupted mattress type 2-0 Vicryl sutures in the biopsy site to ensure that it was totally dry. I dressed this with sulfasalazine and petroleum covered with fluffs and a Kerlix. Next we turned attention to the left upper extremity the area was prepped with iodine and draped as well. I did infuse bupivacaine around the area and proceeded to use a 15 blade scalpel to simply cut the hardened black eschar away. Underneath there was still some blackened the moist tissue and I specifically avoided aggressive debridement in this area because of the suspicion of pyoderma gangrenosum. I did take a small biopsy of the edge of this ulcer as well and sent some of the tissue for culture and fungal. I did use electrocautery at the biopsy site for hemostasis. I dressed the wound with sulfasalazine and petroleum gauze and covered that with 4x4s and Kerlix. Patient tolerated the procedure well and went in good condition to the postoperative care unit there were no complications. Post-operative Condition: stable Disposition: PACU
[2022-04-15] MEDS: HYDROCODONE/ACET 5/325 TABLET 1 TAB PO (18:44)
--- NOTE | 2022-04-15 19:38 | PC.NURSE ---
Patient received back from surgery to room at 1854. Patient is crying in pain, states that her arm and leg are burning. Wounds are wrapped in surgical dressing, no drainage or bleeding noted. Patient medicated with dilaudid IV for severe pain, and Dr. Parker notified of unmanaged pain at this time. VSS. 95% on RA. Report given to oncoming night manager RN. Patient has call light within reach, and bed alarm on for safety.
[2022-04-15] MEDS: HYDROMORPHONE 0.5 MG INJ 1 MG IV (19:46)
[2022-04-15] MEDS: OXYCODONE IR 10 MG TABLET PO ×2 (20:12→23:10)
[2022-04-15] MEDS: methylPREDNISolone 1,000 MG in SODIUM CHLORIDE 0.9% 250 ML 258 MG IV (20:20)
[2022-04-15] MEDS: DULOXETINE 30 MG CAPSULE 60 MG PO (21:50)
[2022-04-15] MEDS: METOPROLOL ER 25 MG TABLET PO (21:50)
[2022-04-15] MEDS: THYROID, PORK 30 MG TABLET 120 MG PO (21:51)
[2022-04-15] MEDS: PREGABALIN 75 MG CAPSULE 300 MG PO (21:51)
[2022-04-16] VITALS (10 sets, daily range): BP systolic 111–146; BP diastolic 43–87; PULSE 85–104; RESP 18–19; TEMP 36.1–37; O2SAT 94–97
--- NOTE | 2022-04-16 00:52 | PC.NURSE ---
pt came back to the acute care from OR around 1900. Pt was sobbing and c/o 10/10 pain to her left shoulder and left leg. Pt HR was elevated in the 120's. Dr. Parker spoke to patient in person in her room and her pain medications were increase to dilaudid 1 mg ivp every 2 hours along with oxycodone 10 mg every 3 hours. Pt has been getting this two medications around the clock and her heart rate is now 105-90's. pt states her pain has improved and now down to 5-7. Pt has history of chronic pain.
[2022-04-16] MEDS: HYDROMORPHONE 1 MG INJ IV ×10 (01:00→20:38)
[2022-04-16] MEDS: ACETAMINOPHEN 325 MG TABLET 975 MG PO ×2 (01:07→06:50)
[2022-04-16] MEDS: OXYCODONE IR 10 MG TABLET PO ×7 (01:59→21:48)
[2022-04-16] MEDS: CLINDAMYCIN 600 MG/50 ML PIGGYBACK 50 MG IV ×2 (06:51→14:33)
[2022-04-16 08:06] LABS: Add Manual Diff / Slide Review NO; Basophils Absolute Auto 0 /uL (0-100); Basophils Percent Auto 0.3 % (0-2); Eosinophils Absolute Auto 0 /uL (0-450); Hematocrit 24.5 % (36-46); Hemoglobin 7.6 g/dL (12.0-16.0); Lymphocytes Absolute Auto 600 /uL (1100-4500); Lymphocytes Percent Auto 5.2 % (25-40); Mean Corpuscular HGB Conc 31.1 % (30-36); Mean Corpuscular Hemoglobin 27.3 PG (26-34); Mean Corpuscular Volume 87.6 fL (80-100); Monocytes Absolute Auto 100 /uL (0-900); Monocytes Percent Auto 0.7 % (3-14); Neutrophils Absolute Auto 10000 /uL (1500-7000); Neutrophils Percent Auto 93.8 % (50-75); Platelet Count 578 X10^3/uL (150-400); Red Cell Distribution Width 19.2 % (11.6-14.8); White Blood Cell Count 10.7 X10^3/uL (4.5-11.0)
[2022-04-16 08:16] LABS: Vancomycin Trough 10.8 ug/mL (10-20)
[2022-04-16 08:17] LABS: Alanine Aminotransferase 20 IU/L (<35); Albumin 3.4 g/dL (3.5-5.0); Albumin Globulin Ratio 1.2 (1.0-2.8); Alkaline Phosphatase 66 U/L (38-126); Aspartate Aminotransferase 21 IU/L (14-36); Bilirubin Total 0.1 mg/dL (0.2-1.3); Blood Urea Nitrogen 12 mg/dL (7-17); Calcium 8.7 mg/dL (8.4-10.2); Carbon Dioxide 30 mmol/L (22-32); Chloride 99 mmol/L (98-107); Estimated Glomerular Filt Rate > 60 mL/min (>60); Globulin 2.9 g/dL (1.7-4.1); Glucose 205 mg/dL (70-100); HEMOLYSIS < 15 (0-50); Magnesium 2.3 mg/dL (1.6-2.3); Potassium 4.4 mmol/L (3.4-5.1); Sodium 136 mmol/L (137-145); Total Protein 6.3 g/dL (6.3-8.2)
[2022-04-16] MEDS: predniSONE 20 MG TABLET PO (08:31)
[2022-04-16] MEDS: ENOXAPARIN 40 MG/0.4 ML SYRINGE SUBCUT (08:31)
[2022-04-16] MEDS: METOPROLOL ER 25 MG TABLET PO ×2 (08:31→20:37)
[2022-04-16] MEDS: PREGABALIN 75 MG CAPSULE 300 MG PO ×2 (08:31→20:38)
[2022-04-16] MEDS: SILVER SULFADIAZINE 1% CREAM 50 GM 1 APPLIC TOP (08:32)
[2022-04-16] MEDS: SODIUM CHLORIDE 0.9% FLUSH 10 ML IV ×3 (08:33→21:50)
[2022-04-16] MEDS: THYROID, PORK 30 MG TABLET 120 MG PO (08:38)
[2022-04-16] MEDS: VANCOMYCIN 1,250 MG/250 ML PIGGYBACK 250 MG IV (08:39)
[2022-04-16] MEDS: PIPERACILLIN/TAZO 3.375 GM in SODIUM CHLORIDE 0.9% 100 ML IV (09:46)
--- NOTE | 2022-04-16 10:16 | PM.PN.1 ---
Subjective Subjective Date Patient Seen: 04/16/22 Interval history: Ms. Vargas says she is feeling MUCH better today than last night. Her pain is under better control. She was not expecting the amount of pain from the biopsy/debridement. She still has some questions and would like to go home but follow up with us at [facility]. She understands that we want to wait for culture results so we know what ABTX she really need and that she is on IV abtx and steroids right now. Overall she is doing well and happy. Exam Vital Signs (past 8 hours): - 04/16/22 04:05 04/16/22 08:31 04/16/22 08:00 Temperature 96.9 F L 97 F L Pulse Rate 100 H 101 H 103 H Respiratory Rate 19 18 Blood Pressure 136/78 146/87 H Pulse Oximetry 95 97 Oxygen Flow Rate 0 0 04/16/22 09:35 Temperature Pulse Rate 91 H Respiratory Rate Blood Pressure Pulse Oximetry Oxygen Flow Rate Oxygen Delivery Method Nasal Cannula Oxygen Flow Rate 0 Const General: cooperative, healthy appearing and comfortable [facility] Head: normal to inspection Eyes General: appearance normal, both eyes and all related structures Resp Effort & Inspection: normal respiratory effort and able to speak in complete sentences Skin Other: wounds are about unchanged from previous. LLE there is a large ulcer with undermining on edges. small bits of necrotic tissue have been removed. LUE unchanged as well. minimal discharge. still with necrotic tissue but the hardened parts are removed. hemostatic biopsy sites at both locations. Objective Labs 04/16/22 07:30 04/16/22 07:30 Labs: Laboratory Results - last 24 hr 04/16/22 04/16/22 04/16/22 07:30 07:30 07:30 WBC 10.7 RBC 2.80 L Hgb 7.6 L Hct 24.5 L MCV 87.6 MCH 27.3 MCHC 31.1 RDW 19.2 H Plt Count 578 H Neut % (Auto) 93.8 H D Lymph % (Auto) 5.2 L D [place] % (Auto) 0.7 L Eos % (Auto) 0.0 L Baso % (Auto) 0.3 Neut # (Auto) 42009 H Lymph # (Auto) 600 L [place] # (Auto) 100 Eos # (Auto) 0 Baso # (Auto) 0 Sodium 136 L Potassium 4.4 Chloride 99 Carbon Dioxide 30 BUN 12 Creatinine 0.75 Estimated GFR > 60 BUN/Creatinine Ratio 16.0 Glucose 205 H D Calcium 8.7 Magnesium 2.3 Total Bilirubin 0.1 L AST 21 ALT 20 Alkaline Phosphatase 66 Total Protein 6.3 Albumin 3.4 L Globulin 2.9 Albumin/Globulin Ratio 1.2 Vancomycin Trough 10.8 PFSH Medical History (Updated 04/15/22 @ 17:34 by Gerardo Whatley DO) Behcet's disease Hypothyroidism Migraine Necrotizing fasciitis Pulmonary embolism Surgical History H/O thyroidectomy S/P debridement Family History Father No pertinent past medical history Mother No pertinent past medical history Social History household members: none Smoking Status: Former smoker alcohol intake: former Assessment & Plan Assessment and plan (1) Necrosis of surgical wound: Status: Acute (2) Abscess: Status: Acute (3) Skin ulcer: Status: Acute Assessment & Plan narrative: I suspect an autoimmune process like pyoderma gangrenosum. She has responded nicely to the steriod pulse and feels much better with pain under much better control. I would wait for cultures to tailor ABTX tx, and biopsy I hope will give insight to etiology of ulcers. I am going to look into the parasitic infection that she would like to rule out and see if we can do that test. I think we should check a CT scan fo the LLE. will order. Will follow. Continue anticoagulation for hx PE and regular diet. call me at [phone] as needed. thank you. Time Spent With Patient Critical Care time: I spent a total of [] minutes of critical care time on this patient's care today; this time is exclusive of procedural time.
--- NOTE | 2022-04-16 10:25 | DI.CT.S_ITS ---
PROCEDURE: CT LE LT W CON INDICATIONS: ulcer LLE TECHNIQUE: After the administration of intravenous contrast, 3 mm axial sections acquired of the left lower leg, with coronal and sagittal reformats. COMPARISON: [facility], CR, XR TIBIA FIBULA LT 2V, 04/14/2022, 15:14. [facility], CT, CT UE LT W CON, 04/14/2022, 18:39. FINDINGS: Image quality: Excellent. Bones: Alignment of left lower leg is anatomic. No acute fracture or dislocation. Ukso-tl-[id number] tricompartmental osteoarthritis in left knee is seen more notably in lateral femoral tibial compartment. Mild tibiotalar joint osteoarthritic changes also seen. No suspicious bony lesions. No cortical erosion or periosteal reaction. Soft tissues: There is ulceration over posterior lateral aspect of lower leg in upper to mid calf level with large soft tissue defect. Extensive shallow ulceration involving posterior lateral aspect of mid to distal lower leg is also seen. Mild skin thickening and subcutaneous fat stranding over lateral portion of left lower leg is noted. No definite underlying calf muscle involvement is noted. No discrete drainable fluid collection is seen. Lobulated bakers cyst is seen. No enhancing soft tissue mass or intramuscular mass. No intramuscular collection. IMPRESSION: 1. Ulcerations in posterior and lateral aspect of left lower leg as described above. Significant cellulitis over lateral portion of left lower leg. No discrete drainable abscess collection. 2. No gross underlying muscle involvement. No intramuscular fluid collection or enhancing mass. 3. Left knee and ankle joint osteoarthritis. No CT evidence of osteomyelitis. No fracture or dislocation. No suspicious bony lesions. Dictated by: Mayank Rendon M.D. on 04/16/2022 at 11:27 Approved by: Mayank Rendon M.D. on 04/16/2022 at 11:38
[2022-04-16] MEDS: NICOTINE 14 PATCH 14 MG TOP (10:29)
--- NOTE | 2022-04-16 11:03 | PC.NURSE ---
Day shift: Off unit for imaging at approx 1101.
[2022-04-16 11:07] LABS: Vancomycin Peak 35.4 ug/mL (20-40)
--- NOTE | 2022-04-16 11:19 | PC.NURSE ---
Day shift: Back in room and back to bed. IV antibiotic infusing again.
--- NOTE | 2022-04-16 11:54 | DIET.CONS ---
Addendum entered by Ariana Ray 04/16/22 12:17: RD agrees with Casino Investigator assessment below Original Note: Dietary Consultation Note Admission Date: 04/14/2022 20:53 Assessment: 52 y/o F admitted for infected wounds was referred to nutrition for wound healing nutrition support. Pt with hx of necrotizing fasciitis following at outpatient wound care. Pt had I&D of upper arm and lower leg wounds yesterday. Met with pt bedside to discuss increasing her vitamin and mineral (A, C, iron, zinc) intake through diet to support would healing and anemia. Diet recall: B: yogurt, berries, and granola OR oatmeal. L: often skips. D: mostly eats out - typically orders meat, rarely fast food. Pt moved from [place] in December 2021. Currently lives in with her significant other. Has limited storage which presents as a barrier to cooking. Pt seemed motivated to make necessary dietary changes to support wound healing. Was interested in possible zinc supplement at times to ensure adequate intake. Ht: 162.56 cm Wt: 72.5 kg BMI: 27.4 Last BM: 04/15/22 (04/15/22 09:56) MNA: 10 Blane Score: 20 Diet: 04/15/22 Breakfast General (Regular) Diet Diet Modifications: Nutrition Percent Meal Consumed 90% 04/16/22 09:26 Percent Meal Consumed 100% 04/16/22 00:00 Labs: RBC 2.80 X10^6/uL (4.0-5.2) L 04/16/22 07:30 Hgb 7.6 g/dL (12.0-16.0) L 04/16/22 07:30 Hct 24.5 % (36-46) L 04/16/22 07:30 Creatinine 0.75 mg/dL (0.52-1.04) 04/16/22 07:30 Hemoglobin A1c 4.9 % (4.0-6.0) 04/15/22 05:52 Lactate 1.8 mmol/L (0.7-2.1) 04/14/22 14:45 Nutrition Diagnosis: Predicted inadequate vitamin and mineral intake (nutritions for healing) r/t chronic infected wound aeb S/P I&D wound, diet recall revealing inadequate intake, barriers, knowledge deficit. Interventions: 1. Using handouts, discussed supportive wound healing vitamins and minerals, and food examples of each. 2. Recc increasing protein intake to support wound healing. 3. Emphasized foods high in iron to support healing and anemia. 4. Added fruit cup to trays TID, honey yogurt once daily, and Humberto BID to support wound healing while hospitalized. EER: 110 g protein (1.5 g/kg per wound healing) Monitoring/Evaluations: ONS tolerance. Electronically Signed by: Michelle Chirinos 04/16/22 11:54 Clinical Dietitian [address] [address]
[2022-04-16] MEDS: CEFAZOLIN 2 GM/100 ML PREMIX 100 ML IV ×2 (15:21→23:15)
[2022-04-16] MEDS: levoFLOXacin 750 MG/150 ML PIGGYBACK 100 MG IV (15:56)
[2022-04-16] MEDS: metroNIDAZOLE 500 MG/100 ML PIGGYBACK 100 MG IV (17:30)
--- NOTE | 2022-04-16 17:31 | P.PN_ITS ---
Subjective Subjective Date Patient Seen: 04/16/22 Time Patient Seen: 08:00 Interval history: Today she feels improved. Her pain is improved. No fevers. Exam Vital Signs (past 8 hours): - 04/16/22 09:35 04/16/22 12:00 Temperature 97.5 F L Pulse Rate 91 H Respiratory Rate 18 Blood Pressure 128/76 Pulse Oximetry 96 Oxygen Flow Rate 0 Oxygen Delivery Method Nasal Cannula Oxygen Flow Rate 0 Narrative Exam Narrative: General:?no acute distress Lungs:?clear bilaterally Cardio: regular rate and rhythm Abdomen: soft, nontender, nondistended Skin: Left upper arm with necrotic tissue surrounded by erythema, left leg with necrotic tissue surrounded by erythema Objective Labs 04/16/22 07:30 04/16/22 07:30 Labs: Laboratory Results - last 24 hr 04/16/22 04/16/22 04/16/22 07:30 07:30 07:30 WBC 10.7 RBC 2.80 L Hgb 7.6 L Hct 24.5 L MCV 87.6 MCH 27.3 MCHC 31.1 RDW 19.2 H Plt Count 578 H Neut % (Auto) 93.8 H D Lymph % (Auto) 5.2 L D [place] % (Auto) 0.7 L Eos % (Auto) 0.0 L Baso % (Auto) 0.3 Neut # (Auto) 77274 H Lymph # (Auto) 600 L [place] # (Auto) 100 Eos # (Auto) 0 Baso # (Auto) 0 Sodium 136 L Potassium 4.4 Chloride 99 Carbon Dioxide 30 BUN 12 Creatinine 0.75 Estimated GFR > 60 BUN/Creatinine Ratio 16.0 Glucose 205 H D Calcium 8.7 Magnesium 2.3 Total Bilirubin 0.1 L AST 21 ALT 20 Alkaline Phosphatase 66 Total Protein 6.3 Albumin 3.4 L Globulin 2.9 Albumin/Globulin Ratio 1.2 Nasal Screen MRSA (PCR) Vancomycin Peak Vancomycin Trough 10.8 04/16/22 04/16/22 10:30 11:00 WBC RBC Hgb Hct MCV MCH MCHC RDW Plt Count Neut % (Auto) Lymph % (Auto) [place] % (Auto) Eos % (Auto) Baso % (Auto) Neut # (Auto) Lymph # (Auto) [place] # (Auto) Eos # (Auto) Baso # (Auto) Sodium Potassium Chloride Carbon Dioxide BUN Creatinine Estimated GFR BUN/Creatinine Ratio Glucose Calcium Magnesium Total Bilirubin AST ALT Alkaline Phosphatase Total Protein Albumin Globulin Albumin/Globulin Ratio Nasal Screen MRSA (PCR) Negative for mrsa Vancomycin Peak 35.4 Vancomycin Trough PFSH Medical History (Updated 04/15/22 @ 17:34 by Gerardo Whatley DO) Behcet's disease Hypothyroidism Migraine Necrotizing fasciitis Pulmonary embolism Surgical History H/O thyroidectomy S/P debridement Family History Father No pertinent past medical history Mother No pertinent past medical history Social History household members: none Smoking Status: Former smoker alcohol intake: former Assessment & Plan Assessment & Plan narrative: 1. Left lower extremity and left upper extremity infected wounds - suspect acute cellulitis on top of chronic ulcers -etiology of ulcers is not clear, biopsies performed by surgery -mrsa swab negative, stop vancomycin -leg culture shows gram negative rods, upper extremity culture shows GPCs -for now will treat with cefazolin, levaquin, flagyl and attempt to narrow pending cultures -plan for transition to PO antibiotics on discharge, and follow up with rheuma tologist, and refer to derm -for now hold off on immunosuppressants with concern for infection 2. Hypertension, chronic - hold home medications for now given current infection. 3. hypothyroidism, chronic - continue home armor thyroid 4. Chronic pain, behchet's - continue home prednisone at current dosing for now. 5. Anemia, unknown acuity Hg 7.9, continue to monitor, may be source of patient's recent dyspnea. Down to 7.3 today. Continue to follow. No evidence of active bleeding. 6. VTE -restart apixaban Time Spent With Patient Critical Care time: I spent a total of [] minutes of critical care time on this patient's care today; this time is exclusive of procedural time.
[2022-04-16] MEDS: APIXABAN 5 MG TABLET PO (20:38)
--- NOTE | 2022-04-16 22:27 | PC.NURSE ---
Performed wound care of upper L extremity under the supervision of RN. Wounds were washed with NS flush and gentle pressure. Silvadene ointment was applied and clean 4x4 gauze was applied and rewrapped with kerlix gauze. Kerlix gauze reinforcement was done on LLE wound due to moderate drainage. Edema/swelling was noted on pt's L foot and ankle. She stated that the swelling occured after surgery. Bilateral pedal and radial pulses are strong and the patient denies any fever, numbness, and tingling of extremities.
[2022-04-17] MEDS: OXYCODONE IR 10 MG TABLET PO ×5 (00:27→15:14)
[2022-04-17 01:00] VITALS: BP 168/92; PULSE 101; RESP 21; TEMP 37.1; O2SAT 94
[2022-04-17] MEDS: metroNIDAZOLE 500 MG/100 ML PIGGYBACK 100 MG IV ×2 (01:06→08:29)
[2022-04-17] MEDS: HYDROMORPHONE 1 MG INJ IV ×4 (01:09→12:36)
[2022-04-17] MEDS: ACETAMINOPHEN 325 MG TABLET 975 MG PO (01:46)
[2022-04-17 04:59] VITALS: BP 106/60; PULSE 85; RESP 16; TEMP 36.3; O2SAT 94
[2022-04-17 06:18] LABS: Add Manual Diff / Slide Review NO; Basophils Absolute Auto 0 /uL (0-100); Basophils Percent Auto 0.4 % (0-2); Eosinophils Absolute Auto 0 /uL (0-450); Eosinophils Percent Auto 0.1 % (2-4); Hematocrit 23.7 % (36-46); Hemoglobin 7.2 g/dL (12.0-16.0); Lymphocytes Absolute Auto 2100 /uL (1100-4500); Lymphocytes Percent Auto 15.7 % (25-40); Mean Corpuscular HGB Conc 30.4 % (30-36); Mean Corpuscular Hemoglobin 26.8 PG (26-34); Mean Corpuscular Volume 88.2 fL (80-100); Monocytes Absolute Auto 800 /uL (0-900); Monocytes Percent Auto 6.4 % (3-14); Neutrophils Absolute Auto 10200 /uL (1500-7000); Neutrophils Percent Auto 77.4 % (50-75); Platelet Count 528 X10^3/uL (150-400); Red Blood Cell Count 2.69 X10^6/uL (4.0-5.2); Red Cell Distribution Width 19.4 % (11.6-14.8); White Blood Cell Count 13.1 X10^3/uL (4.5-11.0)
[2022-04-17 06:22] LABS: Alanine Aminotransferase 16 IU/L (<35); Albumin 3.1 g/dL (3.5-5.0); Albumin Globulin Ratio 1.2 (1.0-2.8); Alkaline Phosphatase 65 U/L (38-126); Aspartate Aminotransferase 17 IU/L (14-36); BUN Creatinine Ratio 27.4 (6-22); Bilirubin Total < 0.1 mg/dL (0.2-1.3); Blood Urea Nitrogen 20 mg/dL (7-17); Calcium 8.2 mg/dL (8.4-10.2); Carbon Dioxide 31 mmol/L (22-32); Chloride 104 mmol/L (98-107); Estimated Glomerular Filt Rate > 60 mL/min (>60); Globulin 2.6 g/dL (1.7-4.1); Glucose 113 mg/dL (70-100); HEMOLYSIS < 15 (0-50); Magnesium 2.3 mg/dL (1.6-2.3); Potassium 4.3 mmol/L (3.4-5.1); Sodium 141 mmol/L (137-145); Total Protein 5.7 g/dL (6.3-8.2)
[2022-04-17] MEDS: CEFAZOLIN 2 GM/100 ML PREMIX 100 ML IV (06:44)
[2022-04-17 08:27] VITALS: PULSE 89
[2022-04-17] MEDS: METOPROLOL ER 25 MG TABLET PO (08:27)
[2022-04-17] MEDS: APIXABAN 5 MG TABLET PO (08:27)
[2022-04-17] MEDS: predniSONE 20 MG TABLET PO (08:27)
[2022-04-17] MEDS: PREGABALIN 75 MG CAPSULE 300 MG PO (08:28)
[2022-04-17] MEDS: THYROID, PORK 30 MG TABLET 120 MG PO (08:28)
[2022-04-17] MEDS: NICOTINE 14 PATCH 14 MG TOP (08:28)
[2022-04-17 08:31] VITALS: BP 134/85; PULSE 94; RESP 19; TEMP 35.6; O2SAT 100
[2022-04-17] MEDS: SILVER SULFADIAZINE 1% CREAM 50 GM 1 APPLIC TOP (08:31)
[2022-04-17] MEDS: DULOXETINE 30 MG CAPSULE 60 MG PO (08:42)
[2022-04-17 08:53] VITALS: PULSE 85
[2022-04-17] MEDS: SODIUM CHLORIDE 0.9% FLUSH 10 ML IV (09:06)
--- NOTE | 2022-04-17 11:23 | PM.DS.1 ---
History of Present Illness History of Present Illness Date Patient Seen: 04/14/22 Time Patient Seen: 18:30 Chief complaint: weakness, barely move,open wound LT arm & leg Narrative: Per admitting provider: This is a 52-year-old female a past medical history necrotizing fasciitis approximately 1 year ago, surgically managed at [facility] with residual wounds in her left leg and left arm, hypertension, hypothyroidism, paget's disease who presented with worsening pain of her left leg and left arm over the past 2 weeks as well as increases in the size of her wounds on her left leg and left arm. She has felt feverish at home, with worsening swelling with a past day or so and worsening pain in her left arm more so than her leg. Her left arm had been well healing, though she has a chronic wound it has increased in size, approximately double in the past couple of days with worsening erythema, and pain. Any purulence from her left arm. Her left leg wound has also approximately doubled in size, and she does complain of cramping like pain with exertion in her left leg. She is had a more difficult time walking due to the pain the last few days. The chest pain, abdominal pain, dysuria, or urinary frequency. Over the past few weeks she has felt more short of breath with exertion. She follows with Wound Care at [facility], and is being evaluated by Plastic surgery in [place] for her wounds. In the emergency room, the patient's vital signs were unremarkable, laboratory evaluation was notable for leukocytosis with WBC 14.4, anemia with hemoglobin of 7.9, and platelet count of 618. Coagulation studies were unremarkable. History is were unremarkable, procalcitonin was 0.38, and COVID-19 testing was negative. Initial radiographs were negative for gas or evidence of bone involvement. Given appearance of her left arm I asked for a CT scan of her left upper extremity which did show nonspecific gas, though this was discussed with the surgeon on-call who will see the morning and given her current clinical appearance this is not consistent with necrotizing fasciitis. Discharge Providers Provider Date of admission: 04/14/22 20:53 Discharge Date: 04/17/22 Primary care physician: Teresa Pearson MD Consults: 04/14/22 18:28 Consult to General Surgery Stat Comment: Consulting Provider: Roque Quintana Reason for consultation: Skin wounds Has provider been notified: Yes Discharge provider: Woody Gamez MD Summary Hospital Course Discharge Diagnosis: 1. Cellulitis 2. Chronic wound ulcers 3. Opiate dependence 4. Behcet's 5. VTE Hospital Course: Ms. Vargas was admitted with worsening of two ulcers. She initially had leukocytosis, which improved with antibiotics, though she is on chronic prednisone for Behcet's. Clinically it looked as if she had cellulits with left upper extremity wound more erythematous, and lower wound appearing more chronic. Skin swab was done of lower extremity wound and showed gram negative lauro, but this is likely colonization given overall look of wound and contamination of skin. She did have wound culture during debridemnt of left upper extremity which showed gram positive cocci. Nasal mrsa swab negative. She was initially on broad antibiotics and ultimately will be discharged on doxycyline for the gram positive gram stain. There is consideration if her wound are possibly secondary to pyoderma, she had biopsy here. Given possible infection she was not given immunosuppresants. She was encouraged to follow up with PCP for pain control. She was referred to dermatology and rheumatology, and she was encouraged to follow up with her wound clinic at [facility]. Exam Vital Signs (past 8 hours): Oxygen Delivery Method Room Air Oxygen Flow Rate 0 Narrative Exam Narrative: General:?no acute distress Lungs:?clear bilaterally Cardio: regular rate and rhythm Abdomen: soft, nontender, nondistended Skin: Left upper arm with necrotic tissue surrounded by erythema, left leg with necrotic tissue surrounded by no erythema Objective Labs 04/17/22 05:54 04/17/22 05:54 Labs: Laboratory Results - last 24 hr 04/17/22 04/17/22 05:54 05:54 WBC 13.1 H RBC 2.69 L Hgb 7.2 L Hct 23.7 L MCV 88.2 MCH 26.8 MCHC 30.4 RDW 19.4 H Plt Count 528 H Neut % (Auto) 77.4 H Lymph % (Auto) 15.7 L [place] % (Auto) 6.4 Eos % (Auto) 0.1 L Baso % (Auto) 0.4 Neut # (Auto) 18874 H Lymph # (Auto) 2100 [place] # (Auto) 800 Eos # (Auto) 0 Baso # (Auto) 0 Sodium 141 Potassium 4.3 Chloride 104 Carbon Dioxide 31 BUN 20 H Creatinine 0.73 Estimated GFR > 60 BUN/Creatinine Ratio 27.4 H Glucose 113 H Calcium 8.2 L Magnesium 2.3 Total Bilirubin < 0.1 L AST 17 ALT 16 Alkaline Phosphatase 65 Total Protein 5.7 L Albumin 3.1 L Globulin 2.6 Albumin/Globulin Ratio 1.2 PFS Medical History (Updated 04/15/22 @ 17:34 by Gerardo Whatley DO) Behcet's disease Hypothyroidism Migraine Necrotizing fasciitis Pulmonary embolism Surgical History H/O thyroidectomy S/P debridement Family History Father No pertinent past medical history Mother No pertinent past medical history Social History household members: none Smoking Status: Former smoker alcohol intake: former Discharge Plan Discharge Plan Patient Disposition: Home Provider Discharge Comment: Ms. Vargas came in to the hospital with an infection. She was started on antibiotics and felt improved. She should follow up with her PCP within two weeks. She will get a call from ID clinic to reschedule her appointment. She is sent referral to dermatology and rheumatology. Discharge orders & Medications Prescriptions: New doxycycline hyclate 100 mg Tablet 100 mg PO BID Qty: 10 0RF hydromorphone [Dilaudid] 4 mg tablet 4 mg PO Q6H PRN (Reason: pain) Qty: 10 0RF Continued pentoxifylline 400 mg tablet extended release 400 mg PO BID Label Comments: TAKE 1 TABLET BY MOUTH THREE TIMES DAILY pregabalin 300 mg capsule 300 mg BID Label Comments: TAKE 1 CAPSULE BY MOUTH TWICE DAILY duloxetine 60 mg capsule,delayed release(DR/EC) 60 mg PO DAILY Label Comments: TAKE 2 CAPSULES BY MOUTH ONCE DAILY EVERY MORNING Rx Instructions: takes 2 capsules thyroid (pork) [[place] Thyroid] 30 mg tablet 120 mg DAILY prednisone 20 mg tablet 20 mg DAILY oxycodone-acetaminophen 10-325 mg tablet 10 - 325 tab 5XD Label Comments: TAKE 1 TABLET BY MOUTH EVERY 4 HOURS NEEDED FOR PAIN . DO NOT EXCEED 5 PER 24 HOURS metoprolol succinate 25 mg tablet extended release 24 hr 25 mg PO BID colchicine 0.6 mg tablet 0.69 mg DAILY Rx Instructions: PM with food Eliquis 5 MG 5 mg PO BID rizatriptan 10 mg tablet 10 mg PO DAILY PRN (Reason: Migraine Headache) Discontinued ivermectin 3 mg tablet 12 mg DAILY Label Comments: TAKE 4 TABLETS ORALLY FOR 1 DOSE. REPEAT IN 1 WEEK IF NECESSARY albendazole 200 mg tablet 200 mg BID Label Comments: TAKE 1 TABLET BY MOUTH ONCE DAILY FOR 14 DAYS Medication counseling provided by Pharmacist: Yes Follow up/Referrals: [facility] [Provider Group] - 2 Weeks (please schedule this when you get home-you have chronic ulcers, history of behcets?, ? pyoderma, possible delusional parasitosis) [facility] [Outside] (please call to schedule this when you get home ? behcets, ? pyoderma, has known chronic wounds) Teresa Pearson MD [Primary Care Provider] - 1 Week (please call to schedule a 1 week follow up with your primary car md ) Krystle Parker MD [Physician] - 1 Week (please call to schedule a 1 week follow up for chronic wounds,follow up from being seeing in hospital within [address] week of discharge per Dr[address] Parker) Diet/Activity/Treatments Diet: Regular Visit Report/Discharge Packet Instructions: DI for Prescription Opioid Use, DI for Incision and Drainage, [facility]: Wound Care Stand Alone Forms: Patient Portal/API, Stroke Signs & Symptoms, Surgery Discharge Discharge Data Primary Care Provider: Teresa Pearson
[2022-04-17] MEDS: DOXYCYCLINE HYCLATE 100 MG TABLET PO (12:00)
[2022-04-17 13:00] VITALS: BP 125/78; PULSE 97; RESP 18; TEMP 35.5; O2SAT 98
--- NOTE | 2022-04-17 15:29 | PC.NURSE ---
Day shift: Paperwork signed and all questions answered. Left unit at approx 1530 via WC. Taken out by TAMMY Canseco. Pt's Spouse is driving her home. Wound dressing in place and remain CDI. Pt given some extra dressing supplies to help manage these chronic wounds. Encouraged to make f/u appointments and go to them. Pt has new MD scripts. Pt also has all personal belongings. Pain has been well controlled per MAR. No nausea and Pt with very good appetite today. Voiding well and reports BM last night.
--- NOTE | 2022-04-17 15:42 | CM.DPNOTE ---
DC Note DC home on oral abx today, no DC needs identified -this confirmed by discharging provider and RN JW
== END 2022-04-17 15:34 | disposition home or self-care (01) | DRG 603 ==
LOC: ED 20:05 → AC 20:54
PROVIDERS: Internal Medicine; Surgery; Admitting Provider Internal Medicine; Emergency Provider Emergency Medicine; PCP Family Medicine; Referring Provider Emergency Medicine; Visit Provider Internal Medicine
DX: L03.114 Cellulitis of left upper limb (principal); F11.20 Opioid dependence, uncomplicated; L97.829 Non-pressure chronic ulcer of other part of left lower leg with unspecified severity; M35.2 Behcet's disease; L98.499 Non-pressure chronic ulcer of skin of other sites with unspecified severity; E03.9 Hypothyroidism, unspecified; D64.9 Anemia, unspecified; I10 Essential (primary) hypertension; L40.9 Psoriasis, unspecified; Z20.822 Contact with and (suspected) exposure to COVID-19; G89.29 Other chronic pain; B96.4 Proteus (mirabilis) (morganii) as the cause of diseases classified elsewhere; B96.20 Unspecified Escherichia coli [E. coli] as the cause of diseases classified elsewhere; Z86.711 Personal history of pulmonary embolism; Z79.01 Long term (current) use of anticoagulants; Z87.891 Personal history of nicotine dependence; Z79.899 Other long term (current) drug therapy; Z88.6 Allergy status to analgesic agent; Z88.8 Allergy status to other drugs, medicaments and biological substances
CPT/HCPCS: 36415; 71045; 73060; 73201; 73590; 73701; 80053; 80202; 81003; 83036; 83605; 83690; 83735; 84145; 85025; 85610; 85730; 87040; 87070; 87075; 87077; 87101; 87176; 87186; 87205; 87635; 87797; 93005; 93010; 96365; 96367; 99285; C9803; J0690; J0696; J1100; J1170; J1650; J1956; J2250; J2405; J2543; J2704; J2930; J3010; Q9967

== ENCOUNTER 2022-04-20 15:25 | Emergency (ER) | payer MEDICARE, MEDICAID, SELFPAY ==
[2022-04-14 21:49] VITALS: BMI 27.4
[2022-04-20] VITALS (12 sets, daily range): BP systolic 129–159; BP diastolic 72–106; PULSE 89–106; RESP 12–23; TEMP 36.8; O2SAT 98–100; BMI 25.9
--- NOTE | 2022-04-20 15:41 | DI.RAD.S_ITS ---
PROCEDURE: XR CHEST 1V INDICATIONS: suspected sepsis TECHNIQUE: One view of the chest was acquired. COMPARISON: [facility], CR, XR CHEST 1V, 04/14/2022, 15:14. FINDINGS: Surgical changes and devices: None. Lungs and pleura: An incomplete inspiratory result is noted, causing a crowded appearance to the lung markings. No focal infiltrates are seen. Mild generalized interstitial prominence can be seen. No pneumothorax or significant pleural effusions are seen. Mediastinum: Mediastinal contours appear normal. Heart size is normal. Bones and chest wall: No suspicious bony lesions. There is S shaped scoliosis. Overlying soft tissues appear unremarkable. IMPRESSION: No focal infiltrates are seen. Low lung volumes with mild generalized interstitial prominence. Please consider edema versus artifact. Atypical/viral infection is also possible. If clinically appropriate, a short-term followup chest series (with PA and lateral views) performed in deep inspiration is suggested for further evaluation. Dictated by: Arya Rodrigez M.D. on 04/20/2022 at 15:40 Approved by: Arya Rodrigez M.D. on 04/20/2022 at 15:41
[2022-04-20 16:01] LABS: INR 1.1 (0.9-1.3); Prothrombin Time 12.7 SECONDS (10.1-12.7)
[2022-04-20 16:04] LABS: PTT Partial Thromboplastin Tim 32 SECONDS (26-36)
[2022-04-20 16:05] LABS: Add Manual Diff / Slide Review NO; Basophils Absolute Auto 100 /uL (0-100); Basophils Percent Auto 0.5 % (0-2); Eosinophils Absolute Auto 0 /uL (0-450); Eosinophils Percent Auto 0.2 % (2-4); Hemoglobin 9.6 g/dL (12.0-16.0); Lactate (Lactic Acid) 1.6 mmol/L (0.7-2.1); Lymphocytes Absolute Auto 1200 /uL (1100-4500); Lymphocytes Percent Auto 10.8 % (25-40); Mean Corpuscular Volume 86.9 fL (80-100); Monocytes Absolute Auto 500 /uL (0-900); Monocytes Percent Auto 4.5 % (3-14); Neutrophils Absolute Auto 9000 /uL (1500-7000); Platelet Count 690 X10^3/uL (150-400); Red Blood Cell Count 3.57 X10^6/uL (4.0-5.2); Red Cell Distribution Width 18.4 % (11.6-14.8); White Blood Cell Count 10.7 X10^3/uL (4.5-11.0)
[2022-04-20 16:06] LABS: Alanine Aminotransferase 25 IU/L (<35); Albumin 4.1 g/dL (3.5-5.0); Albumin Globulin Ratio 1.4 (1.0-2.8); Alkaline Phosphatase 75 U/L (38-126); Aspartate Aminotransferase 27 IU/L (14-36); Bilirubin Total 0.4 mg/dL (0.2-1.3); Blood Urea Nitrogen 17 mg/dL (7-17); Calcium 9.4 mg/dL (8.4-10.2); Carbon Dioxide 27 mmol/L (22-32); Chloride 102 mmol/L (98-107); Estimated Glomerular Filt Rate > 60 mL/min (>60); Globulin 2.9 g/dL (1.7-4.1); Glucose 126 mg/dL (70-100); HEMOLYSIS < 15 (0-50); Lipase 81 U/L (23-300); Potassium 4.3 mmol/L (3.4-5.1); Sodium 139 mmol/L (137-145)
[2022-04-20 16:22] LABS: Procalcitonin 0.09 ng/mL (<0.5)
[2022-04-20] MEDS: SODIUM CHLORIDE 0.9% 1,000 ML 1000 ML IV (16:28)
[2022-04-20] MEDS: HYDROMORPHONE 0.5 MG INJ IV (16:53)
[2022-04-20 17:14] LABS: COVID19 -Nasal RAPID Negative (Negative)
--- NOTE | 2022-04-20 17:44 | PC.NURSE ---
Patient with recent admission to do wounds on left lower leg and left shoulder. Discharged home on 04/17. Reports increased weakness with increased pain to left extremity to the point she is unable to do her own wound care and self care.
--- NOTE | 2022-04-20 18:08 | ED.GENADULT ---
HPI - General Adult General Chief complaint: Weakness Stated complaint: Here recently, Condition worsening Time Seen by Provider: 04/20/22 17:55 Source: patient Mode of arrival: Family Vehicle Limitations: no limitations History of Present Illness HPI narrative: Patient is a 52-year-old female. I evaluated her during her lashes to emergency department subsequently admitted to the hospital for wound infections requiring antibiotics and surgical debridement. She subsequently spent 4 days here in the hospital and was discharged home with instructions to follow-up with primary doctor, follow-up with general surgery, infectious disease and dermatology. She is get to follow-up with any of these specialties. She also run out of her pain medication. She states that since she was discharged from the hospital she feels like her condition is worsening. She is becoming more weak and fatigued. Earlier today according to the patient and family at bedside it was difficult for her to get out of bed because of weakness. Related Data Home Medications Medication Instructions Recorded Confirmed Eliquis 5 mg PO BID 04/14/22 04/14/22 colchicine 0.6 mg tablet 0.69 mg DAILY 04/14/22 04/14/22 duloxetine 60 mg capsule,delayed 60 mg PO DAILY 04/14/22 04/14/22 release metoprolol succinate 25 mg 25 mg PO BID 04/14/22 04/14/22 tablet,extended release 24 hr oxycodone-acetaminophen 10 mg-325 10 - 325 tab 5XD 04/14/22 04/14/22 mg tablet pentoxifylline 400 mg 400 mg PO BID 04/14/22 04/14/22 tablet,extended release prednisone 20 mg tablet 20 mg DAILY 04/14/22 04/14/22 pregabalin 300 mg capsule 300 mg BID 04/14/22 04/14/22 thyroid (pork) 30 mg tablet 120 mg DAILY 04/14/22 04/14/22 (Morgan Thyroid) rizatriptan 10 mg tablet 10 mg PO DAILY PRN Migraine 04/15/22 04/15/22 Headache Previous Rx's Medication Instructions Recorded doxycycline hyclate 100 mg tablet 100 mg PO BID #10 tabs 04/17/22 hydromorphone 4 mg tablet 4 mg PO Q6H PRN pain #10 tabs 04/17/22 (Dilaudid) hydromorphone 2 mg tablet 2 mg PO Q6H PRN pain #10 tabs 04/20/22 (Dilaudid) Allergies Allergy/AdvReac Type Severity Reaction Status Date / Time levothyroxine Allergy Unknown Verified 04/20/22 15:31 NSAIDS (Non-Steroidal AdvReac Severe Heartburn Verified 04/20/22 15:31 Anti-Inflamma Review of Systems Review of Systems ROS Unobtainable: All systems reviewed & are unremarkable except as noted in HPI and below Patient History Medical History Behcet's disease Hypothyroidism Migraine Necrotizing fasciitis Pulmonary embolism Surgical History H/O thyroidectomy S/P debridement Family History Father No pertinent past medical history Mother No pertinent past medical history Social History household members: none Smoking Status: Former smoker alcohol intake: former Smoking Status: Former smoker tobacco type: cigarettes alcohol intake frequency: 0-2 drinks per day Substance Use Type: marijuana Exam Initial Vital Signs Initial Vital Signs: Vital Signs Temperature 98.2 F 04/20/22 15:32 Pulse Rate 106 H 04/20/22 15:32 Respiratory Rate 22 04/20/22 15:32 Blood Pressure 129/85 04/20/22 15:32 Pulse Oximetry 100 04/20/22 15:32 Oxygen Delivery Method 04/20/22 15:32 Const General: cooperative HENMT Head: normal to inspection and normocephalic Resp Effort & Inspection: normal respiratory effort Auscultation: clear to auscultation bilaterally Cardio Rate: regular rate Rhythm: regular rhythm GI Inspection: normal to inspection Skin Other: Large wound left lateral aspect of her lower leg wounds on left proximal arm lateral aspect without surrounding erythema. Neuro General: patient alert, patient awake and moves all extremities Extrem Other: see skin section Course Orders Ordered: ED Orders 04/20/22 15:41 XR chest 1V Stat Complete Blood Count AUTO DIFF Stat Comprehensive Metabolic Panel Stat Lactate (Lactic Acid) Stat Lipase Stat Partial Thromboplastin Time Stat Procalcitonin Stat Prothrombin Time INR Stat RT Consult Eval and Treat NOW 04/20/22 16:29 EKG-12 Lead Stat 04/20/22 16:40 Blood Culture Stat 04/20/22 16:55 COVID19 -Nasal RAPID/Pre-Proc Stat 04/20/22 18:08 Consult to [employer] SUPERVISOR - Retail Operations Manager Stat 04/20/22 18:44 Consult to Home Health Stat Discontinued Medications Hydrocodone Bitart/Acetaminophen (Hydrocodone/Acet 5/325 Tablet) 1 tab PO NOW ONE Stop: 04/20/22 19:09 Last Admin: 04/20/22 19:19 Dose: 1 tab Documented By: CUCO Hydromorphone HCl (Hydromorphone 0.5 Mg Inj) 0.5 mg IV NOW ONE Stop: 04/20/22 16:52 Last Admin: 04/20/22 16:53 Dose: 0.5 mg Documented By: NELDA Sodium Chloride (Normal Saline 0.9%) 1,000 mls @ 1,000 mls/hr IV BOLUS ONE Stop: 04/20/22 16:40 Last Infusion: 04/20/22 18:12 Dose: 0 mls/hr Documented By: Admin: 04/20/22 16:28 Dose: 1,000 mls/hr Documented By: NELDA Ondansetron HCl (Ondansetron 4 Mg/2 Ml Inj) 4 mg IV NOW PRN PRN Reason: Nausea And Vomiting Ondansetron HCl (Ondansetron 4 Mg Odt) 4 mg SL NOW PRN PRN Reason: Nausea And Vomiting Vital Signs Vital signs: Vital Signs - 8 hr 04/20/22 15:32 04/20/22 16:18 04/20/22 16:19 Temperature 98.2 F Pulse Rate 106 H 100 H Respiratory Rate 22 Blood Pressure 129/85 154/106 H Pulse Oximetry 100 99 Oxygen Delivery Method Room Air 04/20/22 16:19 04/20/22 16:21 04/20/22 16:21 Temperature Pulse Rate 99 H 100 H Respiratory Rate 19 Blood Pressure 141/80 H Pulse Oximetry 100 100 Oxygen Delivery Method 04/20/22 16:30 04/20/22 16:30 04/20/22 17:00 Temperature Pulse Rate 102 H Respiratory Rate 23 Blood Pressure 136/75 159/78 H Pulse Oximetry 100 Oxygen Delivery Method 04/20/22 17:00 04/20/22 17:30 04/20/22 17:30 Temperature Pulse Rate 97 H 93 H Respiratory Rate 23 21 Blood Pressure 158/72 H Pulse Oximetry 100 100 Oxygen Delivery Method 04/20/22 18:00 04/20/22 18:00 04/20/22 18:30 Temperature Pulse Rate 95 H 97 H Respiratory Rate 18 13 Blood Pressure 148/86 H Pulse Oximetry 100 99 Oxygen Delivery Method 04/20/22 19:00 04/20/22 19:21 04/20/22 19:21 Temperature Pulse Rate 89 97 H Respiratory Rate 12 22 Blood Pressure 150/79 H Pulse Oximetry 99 98 Oxygen Delivery Method Room Air 04/20/22 19:30 04/20/22 19:30 Temperature Pulse Rate 96 H Respiratory Rate 22 Blood Pressure 147/78 H Pulse Oximetry 98 Oxygen Delivery Method Room Air Medical Decision Making Medical Records Medical records reviewed: Yes I reviewed the patient's medical records. Lab Data Lab results reviewed: Yes I reviewed the patient's lab results. 04/20/22 15:41 04/20/22 15:41 Labs: Lab Results 04/20/22 04/20/22 04/20/22 Range/Units 15:41 15:41 15:41 WBC 10.7 (4.5-11.0) X10^3/uL RBC 3.57 L (4.0-5.2) X10^6/uL Hgb 9.6 L (12.0-16.0) g/dL Hct 31.0 L (36-46) % MCV 86.9 (80-100) fL MCH 27.0 (26-34) PG MCHC 31.0 (30-36) % RDW 18.4 H (11.6-14.8) % Plt Count 690 H (150-400) X10^3/uL Neut % (Auto) 84.0 H (50-75) % Lymph % (Auto) 10.8 L (25-40) % [place] % (Auto) 4.5 (3-14) % Eos % (Auto) 0.2 L (2-4) % Baso % (Auto) 0.5 (0-2) % Neut # (Auto) 9000 H (2746-4161) /uL Lymph # (Auto) 1200 (8553-8754) /uL [place] # (Auto) 500 (0-900) /uL Eos # (Auto) 0 (0-450) /uL Baso # (Auto) 100 (0-100) /uL PT 12.7 (10.1-12.7) SECONDS INR 1.1 (0.9-1.3) APTT 32 (26-36) SECONDS Sodium 139 (137-145) mmol/L Potassium 4.3 (3.4-5.1) mmol/L Chloride 102 (98-107) mmol/L Carbon Dioxide 27 (22-32) mmol/L BUN 17 (7-17) mg/dL Creatinine 0.63 (0.52-1.04) mg/dL Estimated GFR > 60 (>60) mL/min BUN/Creatinine Ratio 27.0 H (6-22) Glucose 126 H (70-100) mg/dL Lactate (0.7-2.1) mmol/L Calcium 9.4 (8.4-10.2) mg/dL Total Bilirubin 0.4 (0.2-1.3) mg/dL AST 27 (14-36) IU/L ALT 25 (<35) IU/L Alkaline Phosphatase 75 (38-126) U/L Total Protein 7.0 (6.3-8.2) g/dL Albumin 4.1 (3.5-5.0) g/dL Globulin 2.9 (1.7-4.1) g/dL Albumin/Globulin Ratio 1.4 (1.0-2.8) Lipase 81 D (23-300) U/L Procalcitonin 0.09 (<0.5) ng/mL SARS-CoV-2 (PCR) (Negative) 04/20/22 04/20/22 Range/Units 15:41 16:55 WBC (4.5-11.0) X10^3/uL RBC (4.0-5.2) X10^6/uL Hgb (12.0-16.0) g/dL Hct (36-46) % MCV (80-100) fL MCH (26-34) PG MCHC (30-36) % RDW (11.6-14.8) % Plt Count (150-400) X10^3/uL Neut % (Auto) (50-75) % Lymph % (Auto) (25-40) % [place] % (Auto) (3-14) % Eos % (Auto) (2-4) % Baso % (Auto) (0-2) % Neut # (Auto) (8944-5642) /uL Lymph # (Auto) (9241-7192) /uL [place] # (Auto) (0-900) /uL Eos # (Auto) (0-450) /uL Baso # (Auto) (0-100) /uL PT (10.1-12.7) SECONDS INR (0.9-1.3) APTT (26-36) SECONDS Sodium (137-145) mmol/L Potassium (3.4-5.1) mmol/L Chloride (98-107) mmol/L Carbon Dioxide (22-32) mmol/L BUN (7-17) mg/dL Creatinine (0.52-1.04) mg/dL Estimated GFR (>60) mL/min BUN/Creatinine Ratio (6-22) Glucose (70-100) mg/dL Lactate 1.6 (0.7-2.1) mmol/L Calcium (8.4-10.2) mg/dL Total Bilirubin (0.2-1.3) mg/dL AST (14-36) IU/L ALT (<35) IU/L Alkaline Phosphatase (38-126) U/L Total Protein (6.3-8.2) g/dL Albumin (3.5-5.0) g/dL Globulin (1.7-4.1) g/dL Albumin/Globulin Ratio (1.0-2.8) Lipase (23-300) U/L Procalcitonin (<0.5) ng/mL SARS-CoV-2 (PCR) Negative (Negative) Urine Dip Bedside Urine Glucose Negative Bedside Urine Bilirubin - Negative Bedside Urine Ketone - Negative Urine Specific [place] 1.015 Bedside Urine Occult Blood - Negative Bedside Urine pH 6.0 Bedside Urine Protein - Negative Bedside Urine Urobilinogen - Negative Bedside Urine Nitrite - Negative Bedside Urine Leukocytes - Negative Esterase Point of care testing: Urine Dip Bedside Urine Glucose Negative Bedside Urine Bilirubin - Negative Bedside Urine Ketone - Negative Urine Specific [place] 1.015 Bedside Urine Occult Blood - Negative Bedside Urine pH 6.0 Bedside Urine Protein - Negative Bedside Urine Urobilinogen - Negative Bedside Urine Nitrite - Negative Bedside Urine Leukocytes - Negative Esterase Imaging Data Chest x-ray: Radiologist's Impression: [address] [address] XRay Report Signed Patient: Nabila Vargas MR#: [id number] : 1970 Acct:[id number] Age/Sex: 52 / F Date of Service: 04/20/22 Loc: ED Accession Number: [id number] ?? Procedure: XR chest 1V Ordering Provider: Naomi Bills D.O. PROCEDURE:? XR CHEST 1V ? INDICATIONS:? suspected sepsis ? TECHNIQUE:? One view of the chest was acquired.? ? COMPARISON:? [facility], , XR CHEST 1V, 04/14/2022, 15:14. ? FINDINGS:? ? Surgical changes and devices:? None.? ? Lungs and pleura:? An incomplete inspiratory result is noted, causing a crowded appearance to the lung markings.? No focal infiltrates are seen.? Mild generalized interstitial prominence can be seen.? No pneumothorax or significant pleural effusions are seen. ? ? Mediastinum:? Mediastinal contours appear normal.? Heart size is normal.? ? Bones and chest wall:? No suspicious bony lesions.? There is S shaped scoliosis.? Overlying soft tissues appear unremarkable.? ? ? IMPRESSION:? No focal infiltrates are seen. ? Low lung volumes with mild generalized interstitial prominence.? Please consider edema versus artifact.? Atypical/viral infection is also possible. ? If clinically appropriate, a short-term followup chest series (with PA and lateral views) performed in deep inspiration is suggested for further evaluation.? ? ? Dictated by: Arya Rodrigez M.D. on 04/20/2022 at 15:40 ? ? Approved by: Arya Rodrigez M.D. on 04/20/2022 at 15:41 ECG Data Attestation: I personally reviewed and interpreted this ECG as follows: Interpretation: Sinus rhythm Ventricular rate 100 Normal axis Normal QRS Normal QTC No ST T wave changes MDM Narrative Medical decision making narrative: Patient's skin wounds today actually appear the same if not better than when she was here a week ago. Her labs are unremarkable. Patient is not septic. No indication for admission to the hospital today. Patient was seen by social work. I did sign off on home health during the visit today. She has referrals and to see infectious disease, dermatology, general surgery. Informed her that she needed to follow-up with these individuals and that she needed to contact them if she does not hear from them tomorrow. I will refill her pain medications but she was informed that further pain medicine does need to come from her primary provider. Not make any changes to her medications. Will discharge patient home with return precautions. Discharge Plan Departure Patient Disposition: Home Clinical Impression: Skin ulcer Activity Restrictions/Additional Instructions: It is important that you continue to take all of your medications as directed. It is also important that you make follow-up outpatient appointments with wound care also Dermatology and Infectious Disease as these specialties are what is going to be helpful to you in the coming weeks/months for healing of your wounds. Is also important that you contact your primary doctor has further pain control will need to come from his or her office. Prescriptions: New hydromorphone [Dilaudid] 2 mg tablet 2 mg PO Q6H PRN (Reason: pain) Qty: 10 0RF No Action pentoxifylline 400 mg tablet extended release 400 mg PO BID Label Comments: TAKE 1 TABLET BY MOUTH THREE TIMES DAILY pregabalin 300 mg capsule 300 mg BID Label Comments: TAKE 1 CAPSULE BY MOUTH TWICE DAILY duloxetine 60 mg capsule,delayed release(DR/EC) 60 mg PO DAILY Label Comments: TAKE 2 CAPSULES BY MOUTH ONCE DAILY EVERY MORNING Rx Instructions: takes 2 capsules thyroid (pork) [[place] Thyroid] 30 mg tablet 120 mg DAILY prednisone 20 mg tablet 20 mg DAILY oxycodone-acetaminophen 10-325 mg tablet 10 - 325 tab 5XD Label Comments: TAKE 1 TABLET BY MOUTH EVERY 4 HOURS NEEDED FOR PAIN . DO NOT EXCEED 5 PER 24 HOURS metoprolol succinate 25 mg tablet extended release 24 hr 25 mg PO BID colchicine 0.6 mg tablet 0.69 mg DAILY Rx Instructions: PM with food Eliquis 5 MG 5 mg PO BID rizatriptan 10 mg tablet 10 mg PO DAILY PRN (Reason: Migraine Headache) doxycycline hyclate 100 mg Tablet 100 mg PO BID Qty: 10 0RF hydromorphone [Dilaudid] 4 mg tablet 4 mg PO Q6H PRN (Reason: pain) Qty: 10 0RF Referrals: Teresa Pearson MD [Primary Care Provider] - Stand Alone Forms: Patient Portal/API
--- NOTE | 2022-04-20 18:55 | CM.SWNOTE ---
ED DCP Note Patient is 52 y/o female who presents to ED due to concern for wounds and increased weakness, difficulty with ADLs. Patient had recent inpatient stay on 04/14/22 to 04/17/22. Patient's PCP is Teresa Pearson, patient has Medicare and Medicaid insurance (Patient states she needs to switch from [place] Medicaid to [facility]). BREAKFAST SERVER enters room to meet with patient, present in room is patient's friend . Patient presents as A/Ox4. Patient endorses since d/c on 04/17/22 she has been weak, not getting better and had decreased energy. Patient endorses difficulties with strength to manage ADLs and wound care and has not been able to get to appts. Patient endorses she has not even attempted driving due to pain and weakness. Patient endorses that she normally lives alone in [place] but she has been staying with friend and friend's mom in [place]. It is reported that friend is going out of town until Thursday but friend can stay at house with his mom. BREAKFAST SERVER encourages patient to f/u with outpatient providers as patient typically has wound care through [facility] and plastic surgery consult with [facility]. Patient endorses she believes she has an updated appt on Thursday. BREAKFAST SERVER encourages patient to f/u if she is unable to make appt. Due to patient's inability to manage ADLs, increased weakness and pain, BREAKFAST SERVER reviews this with ED provider Dr. Martinez. ED provider signs F2F for HH referral for PT, HH aide and RN for wound care. BREAKFAST SERVER calls [facility] and leaves with referral information. BREAKFAST SERVER scans in F2F form. BREAKFAST SERVER provides patient with brochure. Plan: Patient to d/c to home this evening upon medical clearance, [facility] referral in place-patient to f/u with HH. RICH Almaguer
[2022-04-20] MEDS: HYDROCODONE/ACET 5/325 TABLET 1 TAB PO (19:19)
== END 2022-04-20 19:45 | disposition home or self-care (01) ==
PROVIDERS: Emergency Medicine; Emergency Provider Emergency Medicine; PCP Family Medicine
DX: L97.929 Non-pressure chronic ulcer of unspecified part of left lower leg with unspecified severity (principal); I96 Gangrene, not elsewhere classified; I97.89 Other postprocedural complications and disorders of the circulatory system, not elsewhere classified; Z79.01 Long term (current) use of anticoagulants; Z79.899 Other long term (current) drug therapy; Z20.822 Contact with and (suspected) exposure to COVID-19
CPT/HCPCS: 36415; 71045; 80053; 81003; 83605; 83690; 84145; 85025; 85610; 85730; 87040; 87635; 93005; 93010; 96361; 96374; 99284; C9803; J1170

== ENCOUNTER → 2022-04-29 15:05 | Outpatient (CLI) | payer MEDICARE, MEDICAID, SELFPAY ==
[2022-04-14 21:49] VITALS: BMI 27.4
[2022-04-29 17:51] LABS: Hemoglobin A1C% w Est Avg Glu 4.6 % (4.0-6.0)
[2022-04-29 18:13] LABS: HEMOLYSIS < 15 (0-50); Iron 267 ug/dL (37-170)
[2022-04-29 18:34] LABS: Percent Iron Saturation 64 % (15-50); Total Iron Binding Capacity 419 ug/dL (265-497); Transferrin 297 mg/dL (206-381)
[2022-04-29 18:45] LABS: Ferritin 50 ng/mL (11-264)
== END ==
PROVIDERS: PCP Family Medicine; Referring Provider Family Medicine; Visit Provider Family Medicine
DX: R73.01 Impaired fasting glucose (principal); D64.9 Anemia, unspecified; L88 Pyoderma gangrenosum; L02.91 Cutaneous abscess, unspecified; L98.493 Non-pressure chronic ulcer of skin of other sites with necrosis of muscle
CPT/HCPCS: 36415; 82728; 83036; 83540; 83550; 99213

== ENCOUNTER 2022-05-13 06:32 | Day surgery (SDC) | payer MEDICARE, MEDICAID, SELFPAY ==
[2022-04-14 21:49] VITALS: BMI 27.4
[2022-05-09 10:47] VITALS: BMI 25.5
[2022-05-13] VITALS (9 sets, daily range): BP systolic 106–154; BP diastolic 74–92; PULSE 84–93; RESP 11–23; TEMP 36.2–36.6; O2SAT 90–100; BMI 26.4
[2022-05-13] MEDS: LACTATED RINGERS 1,000 ML 42 ML IV (07:47)
--- NOTE | 2022-05-13 08:09 | PM.PREOP ---
Pre-operative Note Interval Note History & Physical reviewed/Exam performed by Physician: Yes Changes to H&P: No
[2022-05-13] MEDS: BUPIVACAINE 0.25% (PF) VIAL 30 ML INJ (08:30)
--- NOTE | 2022-05-13 08:38 | SUR.OPER ---
Supine on padded OR bed, head on pillow, arms secured on padded arm boards at <90 degrees abduction, legs uncrossed, safety belt at thigh, tape over blanket over lower legs.
[2022-05-13] MEDS: LIDOCAINE JELLY 2% 30 ML 10 ML TOP (09:08)
--- NOTE | 2022-05-13 10:05 | P.OP_ITS ---
Operative Date/Time/Diagnoses Date of procedure: 05/13/22 Pre-op diagnosis: necrotic wound, pyoderma gangrenosum Post-op diagnosis: same Procedure & Clinicians Same procedure as scheduled: Yes Surgeon: Krystle Parker Click Yes if Unassisted: Yes Anesthesia Type: General Operative Notes Findings: Left shoulder wounds x2: Medial one with dimensions 6 cm by 4 cm and 1 cm deep, lateral 10 cm x 7 cm x 1 cm depth Left leg wound: 23 cm in longitudinal length 15 cm in width with some undermining along the skin edge of the ulcer and punctate area on the medial edge sized 1 x 1cm defect in the skin which is contiguous with the main ulcer underneath. This little area had a black eschar overlying. There is another similar 1 x 1 cm defect in the skin more laterally which looked clean. Closure Type: not applicable Specimen(s): other (Sent sample of tissue from left shoulder wound for tissue culture.) Procedure in detail: Patient was taken to the operating room and placed under anesthesia with an LMA Dr. Denis was the anesthesiologist a time-out was performed. The wounds were undressed and prepped with iodine. The leg wound was addressed 1st and of the very small necrotic area sized 1 cm in diameter was removed using Metzenbaum scissors and pickups. Wound was then injected with bupivacaine and dressed with lidocaine gel and topical tacrolimus. The Xeroform gauze was placed over top and an ABD and Kerlix was placed above that and wound around the leg the leg was bound with 6 in Coban. Attention then was turned to the left shoulder area. The medial wound had a large black knot of necrotic tissue sized about 4 cm x 2 cm and 2 cm deep that was gently debrided using a 15 blade scalpel. There was no bleeding. The more lateral of the shoulder wounds had little yellow fibrinous tissue that was scan tly debrided. There was still some yellow tissue left at the base but removal of the previous mentioned tissue through had caused a small punctate bleeding, and every effort was made to keep the debridement very very gentle and superficial. All of the debridements were contained within the subcutaneous layer. Bupivacaine without epinephrine was also infused gently around the borders of these wounds. These wounds were also both dressed with tacrolimus topical ointment and Xeroform gauze covered with Kerlix and Coban. EBL was minimal patient tolerated the procedure well and went in good condition to the postoperative care unit. Her wound care regimen will not change and she will follow up with me in the clinic in about a week. Complications: none Post-operative Condition: stable Disposition: PACU
== END 2022-05-13 10:05 | disposition home or self-care (01) ==
PROVIDERS: PCP Family Medicine; Referring Provider Surgery; Visit Provider Surgery
PROC: (CPT 11042; principal; 2022-05-13 07:45)
DX: T81.31XA Disruption of external operation (surgical) wound, not elsewhere classified, initial encounter (principal); L88 Pyoderma gangrenosum
CPT/HCPCS: 11042; 11045; 87070; 87075; 87077; 87147; 87176; 87186; 87205; J1100; J2250; J2405; J2704; J3010; J3490

== ENCOUNTER → 2022-06-03 09:38 | Outpatient (CLI) | payer MEDICARE, MEDICAID, SELFPAY ==
[2022-04-14 21:49] VITALS: BMI 27.4
== END ==
PROVIDERS: PCP Family Medicine; Referring Provider Surgery; Visit Provider Surgery
DX: L88 Pyoderma gangrenosum (principal); S41.102A Unspecified open wound of left upper arm, initial encounter; S41.002A Unspecified open wound of left shoulder, initial encounter; L97.822 Non-pressure chronic ulcer of other part of left lower leg with fat layer exposed; Z87.891 Personal history of nicotine dependence
CPT/HCPCS: 87070; 87075; 87077; 87205; 97597; 99204; 99213

== ENCOUNTER → 2022-06-24 12:57 | Outpatient (CLI) | payer MEDICARE, MEDICAID, SELFPAY ==
[2022-04-14 21:49] VITALS: BMI 27.4
--- NOTE | 2022-07-04 18:18 | P.CALLCOV_ITS ---
Call Coverage Note Note Date of Patient Contact: 07/04/22 Time of Patient Contact: 18:18 Narrative of Care Provided: Patient calling because prescription went to [facility] which is not open until Thursday morning. She will be out of medication as of tomorrow. She had notify the office of this situation with several days notice. It was myself and some technical issues that led to the situation. Therefore I am calling in enough hydromorphone to get her through to the weekend to pharmacy that is open until 10:00 p.m. lianna. In addition she endorses a yeast infection from the antibiotics that she is taking she is immunocompromised and has had this before. And so I have called in some fluconazole as well. I do plan to transition her narcotic prescribing to a primary care physician or chronic pain specialist in the next month or so.
== END ==
PROVIDERS: PCP Family Medicine; Referring Provider Surgery; Visit Provider Surgery
DX: L88 Pyoderma gangrenosum (principal)
CPT/HCPCS: 99213

== ENCOUNTER → 2022-07-08 13:51 | Outpatient (CLI) | payer MEDICARE, MEDICAID, SELFPAY ==
[2022-04-14 21:49] VITALS: BMI 27.4
--- NOTE | 2022-07-11 21:11 | P.CALLCOV_ITS ---
Call Coverage Note Note Date of Patient Contact: 07/11/22 Time of Patient Contact: 21:11 Narrative of Care Provided: She is having a crisis because she is completely out of oxycodone and the Dilaudid dosage that she is needing to take is more than she normally does and she is running low on that as well. She is wondering if she can just switched to Percocet and I discussed with her long-acting narcotic should not be switched out for another short acting 1 and so she clarified that she wants to try switching completely to Percocet and getting off Dilaudid and off the oxycodone. The maximum dose of Percocet that she can taken a day are 12 tabs and so I thin k she will probably need that many to begin with. I explained the Tylenol component to Percocet being the thing that limits the amount and I do not want her to be so close to the limit every day for the rest of her life so we are going to start at the maximum dose and we are going to have to decrease the number of Percocets. However I am on board with simplifying her regimen and if she wants to go down to Percocet only and then try to taper down off of that I think that is okay strategy. So I am going help her do that and I have called in some Percocets to [facility] unfortunately they only have 24 tablets at the pharmacy which is enough to just get her through till Thursday on Thursday will have to figure out what the next step is whether the Percocets are working for her and I prescribe her more of that or if she finds that she really does need a long-acting narcotic.
--- NOTE | 2022-07-15 14:02 | PM.CALLCOV.1 ---
Call Coverage Note Note Date of Patient Contact: 07/15/22 Time of Patient Contact: 14:04 Narrative of Care Provided: Discussed the pain medication. And I realize my error in that patient's normal (preop) dose of the Percocet from prior was Percocet 10/325 and I had called in the . Patient states she is doing all right but that she is having a lot of pain and that she feels as though that is too big of a jump to go from what she was on before (the Oxycodone BID and Dilaudid 4 mg breakthrough) to the max dose of Percocet 5/325s (12 tabs daily). I agree that is too fast a taper. I will switch the Rx to Percocet 10/325 and I am going to call in just a few 10 tablets of the 2 mg Dilaudid to help her with a transition and the goal that I discussed with Nabila and she agrees is to stay on a steady dose of regular medication. We are aiming to use only Percocet and then after we are on a stable dose we are going to try to start tapering it down. Meanwhile we have placed a referral for pain management and are waiting to get in to that clinic to assist with this process. She has filled a recent percocet 5/325 rx for 84 tabs and taken 24 of them. She has 60 left to use when its time for the taper.
== END ==
PROVIDERS: PCP Family Medicine; Referring Provider Surgery; Visit Provider Surgery
DX: L88 Pyoderma gangrenosum (principal); T81.89XA Other complications of procedures, not elsewhere classified, initial encounter; S41.102A Unspecified open wound of left upper arm, initial encounter; S41.002A Unspecified open wound of left shoulder, initial encounter; S81.802A Unspecified open wound, left lower leg, initial encounter
CPT/HCPCS: 99213; 99214

== ENCOUNTER → 2022-07-22 13:42 | Outpatient (CLI) | payer MEDICARE, MEDICAID, SELFPAY ==
[2022-04-14 21:49] VITALS: BMI 27.4
== END ==
PROVIDERS: PCP Family Medicine; Referring Provider Family Medicine; Visit Provider Surgery
DX: L88 Pyoderma gangrenosum (principal); L98.492 Non-pressure chronic ulcer of skin of other sites with fat layer exposed; L97.822 Non-pressure chronic ulcer of other part of left lower leg with fat layer exposed
CPT/HCPCS: 11042

== ENCOUNTER → 2022-07-22 14:49 | Outpatient (CLI) | payer MEDICARE, MEDICAID, SELFPAY ==
[2022-04-14 21:49] VITALS: BMI 27.4
--- NOTE | 2022-07-29 11:38 | PM.PFT.1 ---
Pulmonary Function Test Referral & Results Date Patient Seen: 07/22/22 Results: The spirometry demonstrates an FVC of 3.22 L which is 96% of predicted. The FEV1 was measured at 2.49 L which is 95% of predicted. The FEV1/FVC ratio was 77 which is 97% of predicted. Following the administration of bronchodilator there was to 49% improvement in FEF 25-75%. Lung volumes show an SVC of 3.45 L which is 111% of predicted. The diffusing capacity was measured at 23.10 which is 100% of predicted. The maximum voluntary ventilation was normal Interpretation: This study demonstrates normal pulmonary function
== END ==
PROVIDERS: PCP Family Medicine; Referring Provider Family Medicine; Visit Provider Family Medicine
DX: R06.02 Shortness of breath (principal); F17.210 Nicotine dependence, cigarettes, uncomplicated; J98.8 Other specified respiratory disorders; L88 Pyoderma gangrenosum; L98.492 Non-pressure chronic ulcer of skin of other sites with fat layer exposed; L97.822 Non-pressure chronic ulcer of other part of left lower leg with fat layer exposed
CPT/HCPCS: 11042; 94060; 94726; 94729

== ENCOUNTER → 2022-07-29 13:58 | Outpatient (CLI) | payer MEDICARE, MEDICAID, SELFPAY ==
[2022-04-14 21:49] VITALS: BMI 27.4
== END ==
PROVIDERS: PCP Family Medicine; Referring Provider Surgery; Visit Provider Surgery
DX: Z12.2 Encounter for screening for malignant neoplasm of respiratory organs (principal); J98.11 Atelectasis; L97.822 Non-pressure chronic ulcer of other part of left lower leg with fat layer exposed; L98.492 Non-pressure chronic ulcer of skin of other sites with fat layer exposed; L88 Pyoderma gangrenosum; M35.2 Behcet's disease; Z87.891 Personal history of nicotine dependence
CPT/HCPCS: 11042; 71250

== ENCOUNTER → 2022-07-29 14:25 | Outpatient (CLI) | payer MEDICARE, MEDICAID, SELFPAY ==
[2022-04-14 21:49] VITALS: BMI 27.4
--- NOTE | 2022-07-29 14:26 | DI.CT.S_ITS ---
PROCEDURE: CT CHEST WO CON INDICATIONS: Lung Cancer screening TECHNIQUE: Noncontrast 2.0-2.5 mm thick sections acquired from the pulmonary apices to the posterior costophrenic angles. 7 mm thick axial MIP, and 5 mm coronal and sagittal reformats were then acquired. A low radiation dose technique was utilized. COMPARISON: None. FINDINGS: Image quality: Diagnostic, given the low radiation dose technique. Lungs and pleura: Scattered atelectasis in periphery of bilateral lung betancourt are seen. No discrete pulmonary nodule is noted. No pleural effusion or pneumothorax. Central and peripheral airway is patent. Mediastinum: Heart size is normal. No pericardial effusion. No mediastinal adenopathy by size criteria. Thoracic aorta and central pulmonary arteries are normal in size. Esophagus is normal in caliber. No hiatal hernia. Bones and chest wall: No suspicious bony lesions. No vertebral body compression fractures. Moderate dextroscoliosis of thoracic spine is seen. 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 No axillary or supraclavicular adenopathy by size criteria. Thyroid gland is within normal limits. Abdomen: Visualized upper abdomen solid organs and bowel loops appear normal in the absence of contrast. IMPRESSION: 1. No discrete pulmonary nodule is seen. Scattered atelectasis in periphery of bilateral lung betancourt. 2. No mediastinal or hilar lymphadenopathy. No significant atherosclerotic disease. LUNG-RADS 1: Annual low-dose screening CT chest follow-up is recommended as long as patient meets the criteria. Dictated by: Mayank Rendon M.D. on 07/29/2022 at 17:12 Approved by: Mayank Rendon M.D. on 07/29/2022 at 18:04
== END ==
PROVIDERS: PCP Family Medicine; Referring Provider Family Medicine; Visit Provider Family Medicine
DX: Z12.2 Encounter for screening for malignant neoplasm of respiratory organs (principal); F17.200 Nicotine dependence, unspecified, uncomplicated; J98.11 Atelectasis
CPT/HCPCS: 71250

== ENCOUNTER → 2022-08-06 09:28 | Outpatient (CLI) | payer MEDICARE, MEDICAID, SELFPAY ==
[2022-04-14 21:49] VITALS: BMI 27.4
== END ==
PROVIDERS: PCP Family Medicine; Referring Provider Surgery; Visit Provider Surgery
DX: L88 Pyoderma gangrenosum (principal); S41.102A Unspecified open wound of left upper arm, initial encounter; S41.002A Unspecified open wound of left shoulder, initial encounter; S81.802A Unspecified open wound, left lower leg, initial encounter
CPT/HCPCS: 11042; 97597; 97598; 99213

== ENCOUNTER → 2022-08-12 12:57 | Outpatient (CLI) | payer MEDICARE, OTHER, MEDICAID, SELFPAY ==
[2022-04-14 21:49] VITALS: BMI 27.4
[2022-08-12 14:29] LABS: UR Morphine/Opiate cutoff 300 Positive (Negative); Ur Creatinine Normal (Normal); Ur Specific Gravity Normal (Normal); Urine Amphetamines Negative (Negative); Urine Barbiturates Negative (Negative); Urine Benzodiazepines Negative (Negative); Urine Cocaine Negative (Negative); Urine MDMA Negative (Negative); Urine Methadone Negative (Negative); Urine Methamphetamines Negative (Negative); Urine Oxycodone Positive (Negative); Urine Phencyclidine Negative (Negative); Urine Tetrahydrocannabinol Negative (Negative); Urine Tricyclic Antidepressant Negative (Negative); Urine pH Normal (Normal)
== END ==
PROVIDERS: PCP Family Medicine; Referring Provider Surgery; Visit Provider Surgery
DX: D84.9 Immunodeficiency, unspecified (principal); M54.9 Dorsalgia, unspecified; L98.493 Non-pressure chronic ulcer of skin of other sites with necrosis of muscle; L88 Pyoderma gangrenosum; G89.4 Chronic pain syndrome
CPT/HCPCS: 80305; 99212

== ENCOUNTER → 2022-08-26 14:49 | Outpatient (CLI) | payer MEDICARE, MEDICAID, SELFPAY ==
[2022-04-14 21:49] VITALS: BMI 27.4
== END ==
PROVIDERS: PCP Family Medicine; Referring Provider Family Medicine; Visit Provider Surgery
DX: L88 Pyoderma gangrenosum (principal); L98.492 Non-pressure chronic ulcer of skin of other sites with fat layer exposed
CPT/HCPCS: 97597; 97598

== ENCOUNTER → 2022-09-10 14:17 | Outpatient (CLI) | payer MEDICARE, MEDICAID, SELFPAY ==
[2022-09-10 10:46] VITALS: BMI 27.4
== END ==
PROVIDERS: PCP Family Medicine; Referring Provider Surgery; Visit Provider Surgery
DX: L88 Pyoderma gangrenosum (principal); L98.492 Non-pressure chronic ulcer of skin of other sites with fat layer exposed; L97.822 Non-pressure chronic ulcer of other part of left lower leg with fat layer exposed; B36.9 Superficial mycosis, unspecified; M35.2 Behcet's disease; M79.7 Fibromyalgia; D64.9 Anemia, unspecified; Z79.52 Long term (current) use of systemic steroids; Z87.891 Personal history of nicotine dependence
CPT/HCPCS: 11042; 97597; 97598; 99212; 99213

== ENCOUNTER → 2022-09-24 14:37 | Outpatient (CLI) | payer MEDICARE, MEDICAID, SELFPAY ==
[2022-09-10 10:46] VITALS: BMI 27.4
== END ==
PROVIDERS: PCP Family Medicine; Referring Provider Surgery; Visit Provider Surgery
DX: L88 Pyoderma gangrenosum (principal); L98.492 Non-pressure chronic ulcer of skin of other sites with fat layer exposed; L97.822 Non-pressure chronic ulcer of other part of left lower leg with fat layer exposed; Z87.891 Personal history of nicotine dependence; M25.512 Pain in left shoulder; M79.605 Pain in left leg
CPT/HCPCS: 97597; 97598

== ENCOUNTER → 2022-10-09 14:28 | Outpatient (CLI) | payer MEDICARE, MEDICAID, SELFPAY ==
[2022-09-10 10:46] VITALS: BMI 27.4
== END ==
PROVIDERS: PCP Family Medicine; Referring Provider Surgery; Visit Provider Surgery
DX: L88 Pyoderma gangrenosum (principal); S41.102A Unspecified open wound of left upper arm, initial encounter; S41.002A Unspecified open wound of left shoulder, initial encounter; S81.802A Unspecified open wound, left lower leg, initial encounter
CPT/HCPCS: 11042; 97597; 97598

== ENCOUNTER → 2022-10-21 11:39 | Outpatient (CLI) | payer MEDICARE, MEDICAID, SELFPAY ==
[2022-09-10 10:46] VITALS: BMI 27.4
== END ==
PROVIDERS: PCP Family Medicine; Visit Provider Surgery
DX: L88 Pyoderma gangrenosum (principal); L02.91 Cutaneous abscess, unspecified; L98.493 Non-pressure chronic ulcer of skin of other sites with necrosis of muscle
CPT/HCPCS: 87070; 87075; 87077; 87205; 99212

== ENCOUNTER → 2022-10-23 13:00 | Outpatient (CLI) | payer MEDICARE, MEDICAID, SELFPAY ==
[2022-09-10 10:46] VITALS: BMI 27.4
== END ==
PROVIDERS: PCP Family Medicine; Referring Provider Surgery; Visit Provider Surgery
DX: L88 Pyoderma gangrenosum (principal); L97.822 Non-pressure chronic ulcer of other part of left lower leg with fat layer exposed; L98.492 Non-pressure chronic ulcer of skin of other sites with fat layer exposed; M79.602 Pain in left arm
CPT/HCPCS: 11042; 11045; 99212; 99213

== ENCOUNTER 2022-11-01 14:05 | Emergency (ER) | payer MEDICARE, MEDICAID, SELFPAY ==
[2022-09-10 10:46] VITALS: BMI 27.4
[2022-11-01 15:20] VITALS: BP 135/66; PULSE 105; RESP 17; TEMP 36.9; O2SAT 100; BMI 27.4
[2022-11-01 15:52] LABS: COVID19 -Nasal RAPID Negative (Negative)
--- NOTE | 2022-11-01 17:14 | ED_ITS ---
HPI - Skin/Abscess/Foreign Bdy <Leesa Hui, [facility] - Last Filed: 11/01/22 19:21> General Chief complaint: Skin/Abscess/Foreign Body Stated complaint: lt leg pain/states bacterial infection Time Seen by Provider: 11/01/22 16:57 Source: patient and family Mode of arrival: Wheelchair History of Present Illness HPI narrative: This is a 52-year-old female who presents to the emergency department with history of chronic wound to her left lower leg in her left upper arm. States that her next wound care appointment is not till next week. She endorses worsening pain to her left lower leg and concern for infection. She denies fever chills but states that she has a headache and this is what happens when she gets a worsening infection. She states she is been on doxycycline for cornea bacteria that is growing out in her wound culture. She has not been on antibiotics recently. She had a COVID test today which was negative. Patient has a history of fibromyalgia, chronic pain, atrial fibrillation, Sjogren's syndrome, psoriasis, skin ulcer, immunosuppression. Related Data Home Medications Medication Instructions Recorded Confirmed Eliquis 5 mg PO BID 04/14/22 10/21/22 colchicine (gout) 0.6 mg tablet 0.69 mg PO DAILY 04/14/22 10/21/22 duloxetine 60 mg capsule,delayed 60 mg PO DAILY 04/14/22 10/21/22 release ustekinumab 90 mg/mL subcutaneous 90 mg SUBCUT [id number] 04/29/22 10/21/22 syringe (Stelara) albuterol 90 mcg/actuation aerosol 90 mcg inhalation 4XD 05/13/22 10/21/22 inhaler benzonatate 100 mg capsule 100 mg PO BID 05/13/22 10/21/22 valacyclovir 500 mg tablet 500 mg PO DAILY 05/13/22 10/21/22 fluconazole 150 mg tablet 150 mg PO QWEEK 08/20/22 10/21/22 Previous Rx's Medication Instructions Recorded cefdinir 300 mg capsule 300 mg PO BID #20 caps 04/23/22 [address]abled parking permit #1 ea 04/29/22 lidocaine 4 % topical gel 1 applic topical TID PRN pain #30 05/03/22 grams naloxone 4 mg/actuation nasal 4 mg intranasal Q2M PRN opioid 05/14/22 spray (Narcan) overdose #2 ea swab (Q-Tips/Single-Tip Applicator) #2,000 ea 05/20/22 tacrolimus 0.1 % topical ointment See Rx Instructions .Route 06/24/22 .COMPLEX #100 grams prednisone 10 mg tablet 10 mg PO DAILY #30 tabs 07/16/22 prednisone 5 mg tablet 5 mg PO DAILY #30 tabs 07/16/22 thyroid (pork) 30 mg tablet 120 mg PO DAILY #120 tabs 07/16/22 ([place] Thyroid) pregabalin 300 mg capsule 300 mg PO BID #60 caps 07/26/22 docusate sodium 100 mg capsule 100 mg PO BID #30 caps 08/26/22 (Colace) oxycodone-acetaminophen 10 mg-325 2 tab PO Q4H PRN pain #180 tabs 08/26/22 mg tablet honey 100 % topical paste 1 applic topical DAILY #103 mL 09/12/22 (MediHoney (honey)) metoprolol succinate 25 mg 25 mg PO BID #180 tabs 09/23/22 tablet,extended release 24 hr pentoxifylline 400 mg 400 mg PO TID #90 tabs 09/23/22 tablet,extended release rizatriptan 10 mg tablet 10 mg PO DAILY PRN Migraine 09/23/22 Headache #10 tabs rosuvastatin 5 mg tablet (Crestor) 5 mg PO DAILY #90 tabs 09/23/22 sumatriptan succinate 100 mg tablet 100 mg PO Q2-4H PRN Pain (Scale 09/23/22 Score 4-6), migraine #10 tabs thyroid (pork) 15 mg tablet 15 mg PO DAILY #90 tabs 09/23/22 ([place] Thyroid) doxycycline hyclate 100 mg capsule 100 mg PO DAILY 7 days #14 caps 11/01/22 mupirocin 2 % topical ointment 1 applic topical DAILY #22 grams 11/01/22 oxycodone-acetaminophen 10 mg-325 1 tab PO Q8H PRN pain #10 tabs 11/01/22 mg tablet (Percocet) Allergies Allergy/AdvReac Type Severity Reaction Status Date / Time levothyroxine Allergy Unknown Verified 11/01/22 15:20 NSAIDS (Non-Steroidal AdvReac Severe Heartburn Verified 11/01/22 15:20 Anti-Inflamma Review of Systems <CHAVA Mendiola - Last Filed: 11/01/22 19:21> Review of Systems ROS Unobtainable: All systems reviewed & are unremarkable except as noted in HPI and below Patient History <CHAVA Mendiola - Last Filed: 11/01/22 19:21> Medical History Abnormal Pap smear of cervix (~1993) Acne (~1981) ADHD (~2016) Anemia (~2021) Anxiety (~1980) Atrial fibrillation (~1991) Behcet's disease Benign familial tremor (~1981) Chicken pox (~1972) Chronic back pain (~2021) Depression (~1999) Esophageal ring (~2011) Fibromyalgia (~2014) Fractures (~2013) Headache (~1976) Heavy menstrual period (~2014) Hemorrhoid (~2013) Hepatitis C Herpes (~1987) History of recurrent ear infection (~1971) Hypothyroidism (~2015) IFG (impaired fasting glucose) Migraine (~1976) Mixed hyperlipidemia Necrotizing fasciitis Osteoarthritis (~2007) Painful menstrual periods (~2014) Psoriasis (~1999) PTSD (post-traumatic stress disorder) (~1981) Pulmonary embolism (~2019) Restless leg syndrome (~1997) Sjogren's syndrome (~2014) Sleep apnea (~2016) Thyroid nodule (~2003) Tobacco dependence Surgical History Anesthesia H/O thyroidectomy History of cryosurgery (~1995) History of surgery (04/14/22) History of tonsillectomy and adenoidectomy (~1976) History of tympanostomy (~1977) Humerus fracture (~2006) S/P debridement Family History Father No pertinent past medical history Mother No pertinent past medical history Breast cancer Mental health problem Grandmother Cancer Grandfather History of heart disease Grandmother Dementia Social History household members: none Smoking Status: Former smoker alcohol intake: current Smoking Status: Former smoker tobacco type: cigarettes alcohol intake frequency: holidays/special occasions only Substance Use Type: marijuana and prescription drug Exam <CHAVA Mendiola - Last Filed: 11/01/22 19:21> Narrative Exam Narrative: Reviewed vitals signs and nursing notes. General: Pleasant, sitting upright, in no acute distress, well groomed, afebrile HEENT: symmetrical facial expressions, moist mucous membranes, neck is supple CV: regular rate and rhythm, warm extremities Respiratory: normal work of breathing, without tachypnea or hypoxia. GI: abdomen soft, nondistended, without CVA tenderness bilaterally. MSK: moves all extremities, no weakness, normal tone, ambulatory without deficit Skin: brisk capillary refill, without rash, wounds to left shoulder and left lower leg, packing removed to left lower wound with pus prevalence, this was thoroughly irrigated with normal saline, wound culture obtained, sent for evaluation. Repacked with sterile absorbent packing and left shoulder wound without surrounding erythema or evidence absence, neither wound have erythema or fluctuance concerning for fluid collection underneath the new growth. Neuro: clear speech and normal cognition, A&O x3, GCS 15, no focal motor or sensation deficits Initial Vital Signs Initial Vital Signs: Vital Signs Temperature 98.4 F 11/01/22 15:20 Pulse Rate 105 H 11/01/22 15:20 Respiratory Rate 17 11/01/22 15:20 Blood Pressure 135/66 11/01/22 15:20 Pulse Oximetry 100 11/01/22 15:20 Oxygen Delivery Method Room Air 11/01/22 15:20 <Ruslan Graff DO - Last Filed: 11/02/22 07:07> Initial Vital Signs Initial Vital Signs: Vital Signs Temperature 98.4 F 11/01/22 15:20 Pulse Rate 105 H 11/01/22 15:20 Respiratory Rate 17 11/01/22 15:20 Blood Pressure 135/66 11/01/22 15:20 Pulse Oximetry 100 11/01/22 15:20 Oxygen Delivery Method Room Air 11/01/22 15:20 Course <CHAVA Mendiola - Last Filed: 11/01/22 19:21> Orders Ordered: Discontinued Medications Hydromorphone HCl (Hydromorphone 1 Mg Inj) 1 mg IM NOW ONE Stop: 11/01/22 17:12 Last Admin: 11/01/22 17:19 Dose: 1 mg Documented By: PARUL Oxycodone/Acetaminophen (Oxycodone/Acetaminophen 5/325 Tablet) 2 tab PO NOW ONE Stop: 11/01/22 16:58 Last Admin: 11/01/22 17:19 Dose: 2 tab Documented By: PARUL Vital Signs Vital signs: Vital Signs - 8 hr 11/01/22 15:20 11/01/22 17:23 Temperature 98.4 F Pulse Rate 105 H 92 H Respiratory Rate 17 18 Blood Pressure 135/66 104/72 Pulse Oximetry 100 97 Oxygen Delivery Method Room Air Room Air <Ruslan Graff DO - Last Filed: 11/02/22 07:07> Orders Ordered: Discontinued Medications Hydromorphone HCl (Hydromorphone 1 Mg Inj) 1 mg IM NOW ONE Stop: 11/01/22 17:12 Last Admin: 11/01/22 17:19 Dose: 1 mg Documented By: PARUL Oxycodone/Acetaminophen (Oxycodone/Acetaminophen 5/325 Tablet) 2 tab PO NOW ONE Stop: 11/01/22 16:58 Last Admin: 11/01/22 17:19 Dose: 2 tab Documented By: PARUL Vital Signs Vital signs: Vital Signs - 8 hr 11/01/22 15:20 11/01/22 17:23 Temperature 98.4 F Pulse Rate 105 H 92 H Respiratory Rate 17 18 Blood Pressure 135/66 104/72 Pulse Oximetry 100 97 Oxygen Delivery Method Room Air Room Air MDM - Skin/Abscess/Foreign Bdy <CHAVA Mendiola - Last Filed: 11/01/22 19:21> Lab Data Labs: Lab Results 11/01/22 Range/Units 15:30 SARS-CoV-2 (PCR) Negative (Negative) MDM Narrative Medical decision making narrative: Chief Complaint: Wound pain Multiple etiologies for patient's complaint considered including, but not limited to: Abscess, worsening infection, Cellulitis, no fluid pockets or fluctuance concerning for abscess noted. Low concern for osteomyelitis or DVT. No pain out of proportion, or rapid progression concerning for necrotizing fasciitis. Exam without sensation changes, nerves and tendons intact, no crepitus. Patient to be discharged home with doxycycline, mupirocin, and pain control with follow up with their PMD and wound care as scheduled for next week. Wound to lower left leg was parotid and irrigated out with normal saline until clear, wound culture was repeated as she has history of coronary bacteria and most recent wound culture was a few weeks ago. I have independently reviewed the patient's vital signs and nursing notes as well as prior records if available. Social considerations that may affect disposition: none Questions are addressed and there is agreement with the plan and for follow-up. I consulted with the ED attending physician Dr. Graff as needed for higher level of care considerations and they were available for discussion and recommendations regarding plan of care and diagnostic testing. Patient is appropriate for outpatient management. <Ruslan Graff, DO - Last Filed: 11/02/22 07:07> Lab Data Labs: Lab Results 11/01/22 Range/Units 15:30 SARS-CoV-2 (PCR) Negative (Negative) Discharge Plan Departure Patient Disposition: Home Clinical Impression: Wound, open with complication Chronic pain Qualifiers: Chronic pain type: other chronic pain Qualified Code(s): G89.29 - Other chronic pain Instructions: DI for Chronic Pain -- Adult, DI for Wound Infection Activity Restrictions/Additional Instructions: Thank you for coming in for evaluation, sorry about your pain. Please use the topical antibiotic ointment to help with your wound and use it on the surrounding tissue so that it heals well. Please take the packing out of your leg wound after 2 days and clean it and then replace it. Follow up with wound care. If you develop fever chills come back to the hospital for evaluation, we will call you if the wound culture suggest we need to change her antibiotic. I hope you feel better soon, please try to stick to the pain medication you were prescribed without needing extra. Prescriptions: New mupirocin 2 % ointment 1 applic topical DAILY Qty: 22 0RF oxycodone-acetaminophen [Percocet] 10-325 mg tablet 1 tab PO Q8H PRN (Reason: pain) Qty: 10 0RF doxycycline hyclate 100 mg capsule 100 mg PO DAILY 7 Days Qty: 14 0RF No Action naloxone [Narcan] 4 mg/actuation spray,non-aerosol 4 mg intranasal Q2M PRN (Reason: opioid overdose) Qty: 2 0RF Rx Instructions: spray 1 dose into ONE nostril; alternate nostrils w each dose until help arrives (DME) Q-Tips/Single-Tip Applicator Swab See Rx Instructions .Route Qty: 2000 0RF Rx Instructions: As directed [place] Thyroid 30 mg tablet 120 mg PO DAILY Qty: 120 11RF prednisone 5 mg tablet 5 mg PO DAILY Qty: 30 11RF prednisone 10 mg tablet 10 mg PO DAILY Qty: 30 11RF pregabalin 300 mg capsule 300 mg PO BID Qty: 60 5RF oxycodone-acetaminophen 10-325 mg tablet 2 tab PO Q4H PRN (Reason: pain) Qty: 180 0RF Rx Instructions: Max of 10 tablets per day. This is 18 days worth. Remainder of Rx from [facility]. But, you should call [facility] as needed with any questions or concerns. docusate sodium [Colace] 100 mg capsule 100 mg PO BID Qty: 30 0RF Rx Instructions: Take while taking vicodin/percocet/norco for pain to prevent constipation. If you become constipated, you make take anything over the counter that has worked for you in the past or call the office for guidance. If it has been more than 3-4 days since you had a bowel movement, please contact [facility] at [phone] Stelara 90 mg/mL syringe 90 mg SUBCUT [id number] (DME) Disabled parking permit See Rx Instructions .Route .MEDSUPPLY Qty: 1 0RF Rx Instructions: I find this patient to be medically disabled and qualified for disabled parking as indicated, and signed, on the accompanying disabled parking application for individuals. fluconazole 150 mg tablet 150 mg PO QWEEK rosuvastatin [Crestor] 5 mg tablet 5 mg PO DAILY Qty: 90 3RF [place] Thyroid 15 mg tablet 15 mg PO DAILY Qty: 90 3RF Rx Instructions: 135 mg total/day rizatriptan 10 mg tablet 10 mg PO DAILY PRN (Reason: Migraine Headache) Qty: 10 11RF sumatriptan succinate 100 mg tablet 100 mg PO Q2-4H PRN (Reason: Pain (Scale Score 4-6), migraine) Qty: 10 11RF Rx Instructions: no more than 2 tabs/day metoprolol succinate 25 mg tablet extended release 24 hr 25 mg PO BID Qty: 180 3RF pentoxifylline 400 mg tablet extended release 400 mg PO TID Qty: 90 11RF lidocaine 4 % gel 1 applic topical TID PRN (Reason: pain) Qty: 30 0RF Rx Instructions: May substitute for what you have available. Call Dr. Parker at [phone] (use cell on Thursday) as needed. tacrolimus 0.1 % ointment See Rx Instructions .ROUTE .COMPLEX Qty: 100 3RF Dose Instruction: USE 1 APPLICATION TOPICALLY TWICE DAILY Rx Instructions: USE 1 APPLICATION TOPICALLY DAILY MediHoney (honey) 100 % paste 1 applic topical DAILY Qty: 103 2RF Rx Instructions: please continue to apply tacrolimous daily as well. cefdinir 300 mg capsule 300 mg PO BID Qty: 20 0RF Patient Comments: completed med. valacyclovir 500 mg tablet 500 mg PO DAILY Patient Comments: TAKE 1 TABLET BY MOUTH THREE TIMES DAILY FOR 7 DAYS AT FIRST SIGNS OF HERPES OUTBREAK. benzonatate 100 mg Capsule 100 mg PO BID albuterol 90 mcg/actuation Aerosol 90 mcg INHALATION 4XD duloxetine 60 mg capsule,delayed release(DR/EC) 60 mg PO DAILY Patient Comments: TAKE 2 CAPSULES BY MOUTH ONCE DAILY EVERY MORNING Rx Instructions: takes 2 capsules colchicine (gout) 0.6 mg tablet 0.69 mg PO DAILY Rx Instructions: PM with food Eliquis 5 MG 5 mg PO BID [facility]errals: [facility] [Outside] Teresa Pearson MD [Non-Staff] - Viviana Connelly DO [Primary Care Provider] - Stand Alone Forms: Patient Portal/API <Ruslan Graff DO - Last Filed: 11/02/22 07:07> [facility] Jaylen Attestation: I was immediately available in the department for consultation. Documentation has been reviewed. I agree with assessment and plan.
[2022-11-01] MEDS: OXYCODONE/ACETAMINOPHEN 5/325 TABLET 2 TAB PO (17:19)
[2022-11-01] MEDS: HYDROMORPHONE 1 MG INJ IM (17:19)
[2022-11-01 17:23] VITALS: BP 104/72; PULSE 92; RESP 18; O2SAT 97
== END 2022-11-01 17:29 | disposition home or self-care (01) ==
PROVIDERS: Emergency Medicine; Emergency Provider Nurse Practitioner Critical Care Medicine; PCP Family Medicine
DX: S81.802A Unspecified open wound, left lower leg, initial encounter (principal); Z79.01 Long term (current) use of anticoagulants; Z79.899 Other long term (current) drug therapy; Z20.822 Contact with and (suspected) exposure to COVID-19
CPT/HCPCS: 87070; 87075; 87077; 87205; 87635; 96372; 99283; C9803; J1170

== ENCOUNTER → 2022-11-05 13:08 | Outpatient (CLI) | payer MEDICARE, MEDICAID, SELFPAY ==
[2022-09-10 10:46] VITALS: BMI 27.4
== END ==
PROVIDERS: PCP Family Medicine; Referring Provider Surgery; Visit Provider Surgery
DX: L88 Pyoderma gangrenosum (principal); L98.492 Non-pressure chronic ulcer of skin of other sites with fat layer exposed; L97.222 Non-pressure chronic ulcer of left calf with fat layer exposed
CPT/HCPCS: 99212; 99213

== ENCOUNTER → 2022-11-19 13:35 | Outpatient (CLI) | payer MEDICARE, MEDICAID, SELFPAY ==
[2022-09-10 10:46] VITALS: BMI 27.4
== END ==
PROVIDERS: PCP Family Medicine; Referring Provider Surgery; Visit Provider Surgery
DX: L88 Pyoderma gangrenosum (principal); L98.492 Non-pressure chronic ulcer of skin of other sites with fat layer exposed; L97.822 Non-pressure chronic ulcer of other part of left lower leg with fat layer exposed
CPT/HCPCS: 87070; 87075; 87077; 87205; 99213

== ENCOUNTER → 2022-12-03 14:17 | Outpatient (CLI) | payer MEDICARE, MEDICAID, SELFPAY ==
[2022-09-10 10:46] VITALS: BMI 27.4
== END ==
PROVIDERS: PCP Family Medicine; Referring Provider Surgery; Visit Provider Surgery
DX: L88 Pyoderma gangrenosum (principal); L98.492 Non-pressure chronic ulcer of skin of other sites with fat layer exposed; L97.822 Non-pressure chronic ulcer of other part of left lower leg with fat layer exposed; S60.411A Abrasion of left index finger, initial encounter
CPT/HCPCS: 99213

== ENCOUNTER → 2022-12-17 14:35 | Outpatient (CLI) | payer MEDICARE, MEDICAID, SELFPAY ==
[2022-09-10 10:46] VITALS: BMI 27.4
== END ==
PROVIDERS: PCP Family Medicine; Referring Provider Surgery; Visit Provider Surgery
DX: L88 Pyoderma gangrenosum (principal); L98.492 Non-pressure chronic ulcer of skin of other sites with fat layer exposed; L97.222 Non-pressure chronic ulcer of left calf with fat layer exposed; L97.822 Non-pressure chronic ulcer of other part of left lower leg with fat layer exposed; S60.411A Abrasion of left index finger, initial encounter
CPT/HCPCS: 99213

== ENCOUNTER → 2022-12-31 14:42 | Outpatient (CLI) | payer MEDICARE, MEDICAID, SELFPAY ==
[2022-09-10 10:46] VITALS: BMI 27.4
== END ==
PROVIDERS: PCP Family Medicine; Referring Provider Surgery; Visit Provider Surgery
DX: L88 Pyoderma gangrenosum (principal); L98.492 Non-pressure chronic ulcer of skin of other sites with fat layer exposed; L97.822 Non-pressure chronic ulcer of other part of left lower leg with fat layer exposed; S60.41 Abrasion of fingers
CPT/HCPCS: 99213; 99214

== ENCOUNTER 2023-01-06 13:01 | Day surgery (SDC) | payer MEDICARE, MEDICAID, SELFPAY ==
[2022-09-10 10:46] VITALS: BMI 27.4
[2022-12-25 10:37] VITALS: BMI 27.1
--- NOTE | 2023-01-06 | PATH_ITS ---
[facility] Accession Number: [id number] No. of containers..02 Tissue . 01 Material submitted: . PART A: leg - LEFT LEG TISSUE PART B: skin - LEFT UPPER EXTREMITY ULCER . 01 Diagnosis: A. Left Leg, Biopsy: Two fragments of tissue received for evaluation, one showing dermal scar with mixed inflammation, and the other showing changes consistent with the surface of an epidermal inclusion cyst, ruptured and inflamed, with mild squamous atypia, favor reactive. . Note: Clinicopathologic correlation is advised for definitive diagnosis. . B. Left Upper Extremity, Biopsy: Crusted ulcer with granulation tissue formation and underlying scar with mixed inflammation. . Note: The changes are nonspecific. Possible diagnostic considerations could include trauma and infection, among others. PAS stain is negative for fungal hyphae. Clinicopathological correlation is advised for definitive diagnosis. [facility] 01/16/2023 1712 Local . 01 Comment: The histologic material was reviewed with Dr. Garrick Gonzales, who concurs. . 01 Electronically signed: . Lesvia Feliciano MD, Dermatopathologist NPI- [id number] . 01 Gross description: . A. Received in formalin labeled with the patient's name, and left leg tissue, consists of two irregular fragments of chapman wrinkled skin measuring 2.5 x 0.7 x 0.3 cm (inked blue) and 1.7 x 0.8 x 0.5 cm (inked green). Sectioning reveals an orange-chapman cut surface. Rug Sample Beveler sections are submitted in cassette A1. B. Received in formalin labeled with the patient's name, and left upper extremity ulcer, consists of an unoriented ellipse of skin measuring 4.9 x 3.9 cm and 0.4 cm thick. The centrally located ulcerated area measures 2.4 x 1.3 cm. One-half is arbitrarily inked blue while the opposite half is arbitrarily inked green. The specimen is serially sectioned into 10 slices. Rug Sample Beveler sections are submitted as follows: B1: Rep slice 5. B2: Rep slice 6. B3: Rep slice 7. See diagram. ([id number]) /MRV 01/08/2023 1825 Local . 01 Pathologist provided ICD-10: L98.9 . 01 CPT . 931863, 271287, 352915 Specimen Comment: A courtesy copy of this report has been sent to [phone] Performed at: 01 [facility] [address] [place] [address], [place], [place] [id number] MD Kranthi Sue MD Phone: [phone]
--- NOTE | 2023-01-06 | PATH_ITS ---
[facility] Accession Number: [id number] No. of containers..01 Tissue . 01 Material submitted: . body - LEFT UPPER EXTREMITY ABCESS CAVITY . 01 Diagnosis: Soft Tissue, Left Upper Extremity, Biopsy: Fibroadipose tissue with areas of necrosis, surrounded by mixed inflammation, with polarizable foreign material and also focal plant material (splinter). . Note: While the findings are not entirely specific, diagnostic considerations could include changes secondary to local trauma or infection. PAS stain is negative for fungal hyphae. However, special stains are not sensitive. Tissue cultures are recommended for definitive diagnosis if infection is a clinical concern. Clinicopathological correlation is advised for definitive diagnosis. [facility] 01/14/2023 1658 Local . 01 Electronically signed: . Lesvia Feliciano MD, Dermatopathologist NPI- [id number] . 01 Gross description: . The specimen is received in formalin labeled with the patient's name, , and left upper extremity abscess cavity, consists of an irregular chapman soft tissue fragment measuring 2.9 x 2.4 x 1.1 cm. The specimen is inked green. Sectioning reveals a yellow to chapman soft cut surface. Noodle Press Operator sections are submitted in cassette A1. ([id number]) /MRV 01/14/2023 1759 Local . 01 Pathologist provided ICD-10: L98.9 . 01 CPT . 601826, [id number] Specimen Comment: A courtesy copy of this report has been sent to [phone] Performed at: 01 [facility] [address] [place] [address] [address] [facility], [place], [place] [id number] MD Kranthi Sue MD Phone: [phone]
[2023-01-06 13:43] VITALS: BP 113/77; PULSE 87; RESP 24; TEMP 36.1; O2SAT 100; BMI 27.1
[2023-01-06] MEDS: LACTATED RINGERS 1,000 ML 42 ML IV ×2 (13:49→15:39)
--- NOTE | 2023-01-06 14:29 | P.HP_ITS ---
History of Present Illness History of Present Illness Date Patient Seen: 01/06/23 Time Patient Seen: 14:30 Chief complaint: Wound debridement of LLE Narrative: Nabila is here for her left leg debridement. She also has questions about her left arm chronic wound. She says this has chronic wound for greater than 9 months going back to when she originally a wide debridement in [place] for what was thought the time to be necrotizing soft tissue infection small area that remains open is about 3 x 5 cm with heaped up edges. There was some thin shiny scar tissue just superior lateral to the open portion of the wound. [facility] Medical History (Updated 01/06/23 @ 14:33 by Roque Quintana MD) DVT (deep venous thrombosis) (02/2019) COPD (chronic obstructive pulmonary disease) Atrial flutter (11/2019) SVT (supraventricular tachycardia) Mixed hyperlipidemia Tobacco dependence Acne (~1981) Sjogren's syndrome (~2014) Osteoarthritis (~2007) Sleep apnea (~2016) PTSD (post-traumatic stress disorder) (~1981) Depression (~1999) Anxiety (~1980) Restless leg syndrome (~1997) Headache (~1976) Benign familial tremor (~1981) ADHD (~2016) Fractures (~2013) Fibromyalgia (~2014) Chronic back pain (~2021) Chicken pox (~1972) Anemia (~2021) History of recurrent ear infection (~1971) Painful menstrual periods (~2014) Herpes (~1987) Heavy menstrual period (~2014) Abnormal Pap smear of cervix (~1993) Hepatitis C Hemorrhoid (~2013) Esophageal ring (~2011) Thyroid nodule (~2003) Atrial fibrillation (~1991) IFG (impaired fasting glucose) Psoriasis (~1999) Behcet's disease Migraine (~1976) Pulmonary embolism (~2019) Hypothyroidism (~2015) Necrotizing fasciitis Surgical History (Updated 12/25/22 @ 10:44 by Tessa Edmond RN) History of surgery (05/13/22) History of surgery (04/14/22) Anesthesia History of cryosurgery (~1995) Humerus fracture (~2006) History of tympanostomy (~1977) History of tonsillectomy and adenoidectomy (~1976) H/O thyroidectomy S/P debridement Family History Father No pertinent past medical history Mother No pertinent past medical history Breast cancer Mental health problem Grandmother Cancer Grandfather History of heart disease Grandmother Dementia Social History household members: none Smoking Status: Current every day smoker alcohol intake: current Meds Home Medications and Allergies Home Medications Medication Instructions Recorded Confirmed Type apixaban 5 mg tablet (Eliquis) 5 mg PO BID ##0 04/14/22 01/06/23 History duloxetine 60 mg capsule,delayed 120 mg PO DAILY 04/14/22 01/06/23 History release Disabled parking permit #1 ea 04/29/22 12/10/22 Rx ustekinumab 90 mg/mL subcutaneous 90 mg SUBCUT Q8W 04/29/22 01/06/23 History syringe (Stelara) albuterol 90 mcg/actuation aerosol 90 mcg inhalation 4XD PRN 05/13/22 01/06/23 History inhaler Shortness Of Breath valacyclovir 500 mg tablet 500 mg PO DAILY PRN Breakout 05/13/22 01/06/23 History naloxone 4 mg/actuation nasal 4 mg intranasal Q2M PRN opioid 05/14/22 12/25/22 Rx spray (Narcan) overdose #2 ea swab (Q-Tips/Single-Tip Applicator) #2,000 ea 05/20/22 12/10/22 Rx tacrolimus 0.1 % topical ointment See Rx Instructions .Route 06/24/22 01/06/23 Rx .COMPLEX #100 grams pregabalin 300 mg capsule 300 mg PO BID #60 caps 07/26/22 01/06/23 Rx fluconazole 150 mg tablet 150 mg PO 2XW 08/20/22 01/06/23 History oxycodone-acetaminophen 10 mg-325 2 tab PO Q4H PRN pain #180 tabs 08/26/22 01/06/23 Rx mg tablet metoprolol succinate 25 mg 25 mg PO BID #180 tabs 09/23/22 01/06/23 Rx tablet,extended release 24 hr pentoxifylline 400 mg 400 mg PO TID #90 tabs 09/23/22 01/06/23 Rx tablet,extended release rizatriptan 10 mg tablet 10 mg PO DAILY PRN Migraine 09/23/22 01/06/23 Rx Headache #10 tabs rosuvastatin 5 mg tablet (Crestor) 5 mg PO DAILY #90 tabs 09/23/22 01/06/23 Rx sumatriptan succinate 100 mg tablet 100 mg PO Q2-4H PRN Pain (Scale 09/23/22 12/25/22 Rx Score 4-6), migraine #10 tabs thyroid (pork) 15 mg tablet 15 mg PO DAILY #90 tabs 09/23/22 01/06/23 Rx ([place]ry Thyroid) mupirocin 2 % topical ointment 1 applic topical DAILY #22 grams 11/01/22 01/06/23 Rx oxycodone-acetaminophen 10 mg-325 1 tab PO Q8H PRN pain #10 tabs 11/01/22 12/25/22 Rx mg tablet (Percocet) thyroid (pork) 90 mg tablet 90 mg PO DAILY 12/25/22 01/06/23 History Allergies Allergy/AdvReac Type Severity Reaction Status Date / Time levothyroxine Allergy Unknown Verified 12/10/22 15:30 NSAIDS (Non-Steroidal AdvReac Severe Heartburn Verified 12/10/22 15:30 Anti-Inflamma Exam Vital Signs (past 8 hours): - 01/06/23 13:43 Temperature 96.9 F L Pulse Rate 87 Respiratory Rate 24 Blood Pressure 113/77 Pulse Oximetry 100 Oxygen Delivery Method Room Air Oxygen Delivery Method Room Air Narrative Exam Narrative: There is to 2 3 cm area of undermining of the inferior portion of lateral left leg wound There is a 3 x 5 cm open chronic wound of the anterior left upper extremity with heaped up edges and surrounding fibrosis Assessment & Plan Assessment and plan (1) Chronic wound of extremity: Status: Acute Plan We will plan to unroof the left leg wound and I will attempt to close the left arm wound using a flap. She understands the risks and would like to proceed.
[2023-01-06] MEDS: CEFAZOLIN 2 GM/100 ML PREMIX 100 ML IV (14:45)
[2023-01-06] MEDS: METHYLENE BLUE 50 MG/10 ML VIAL INJ (14:54)
--- NOTE | 2023-01-06 15:01 | SUR.OPER ---
Supine on padded OR bed, head on pillow, arms secured on padded arm boards at <90 degrees abduction, legs uncrossed, safety belt at thigh, tape over blanket over lower legs.
[2023-01-06] MEDS: ACETAMINOPHEN IV 1,000 MG/100 ML VIAL 400 MG IV (15:15)
[2023-01-06] MEDS: BUPIVACAINE 0.5% (PF) 30 ML, EPINEPHrine 0.15 MG INJ (15:19)
[2023-01-06 17:13] VITALS: BP 138/81; PULSE 87; RESP 12; TEMP 36.6; O2SAT 97
--- NOTE | 2023-01-06 17:17 | P.OP_ITS ---
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 Debridement of left lower extremity chronic wound 2. Debridement of left upper extremity chronic wound and rotational flap closure Same procedure as scheduled: Yes Surgeon: Roque Quintana Operative Notes Procedure in detail: The patient is a 52-year-old woman with nonhealing wounds of the left lower extremity and left upper extremity. She was consented for debridement of the left lower extremity and debridement and flap closure of the left upper ex tremity. The patient was brought into the operating room, placed on the table in the supine position with the left arm on an arm board. General LMA anesthesia was induced. Time-out was performed. We started with left leg. A Q-tip was soaked in methylene blue and inserted into the tract which was about 3 cm. The area around the wound at the inferior lateral aspect of the leg was prepped and draped in the usual fashion. Local was injected into the skin and subcutaneous adipose tissue. A 3 cm x 1 cm segment of skin was excised. There were no further sinus tracts unroof. A dry gauze was placed into the wound bed followed by additional gauze and a Coban wrap. Next we moved onto the left upper extremity chronic wound. Wound was located along the anterior portion of the left deltoid and proximal biceps. We excised the chronic ulcer which was approximately 4 cm x 5 cm. It appeared to go down to the fascia. The tissue lateral to the wound was scarred down and fairly woody. There was additional purulent material here when we attempted to raise a flap. It is unclear if this is abscess or fat necrosis. A culture was taken from within the abscess cavity. The cavity was excised en block and the cavity itself was sent along with the ulcer. There appeared to be no residual material left behind. We then created a rotational flap taking skin from the medial and posterior portion of the arm along the triceps lifting the flap off the underlying fascia. A cutaneous sensory nerve, probably the intercostal brachial, was seen and protected. A 15 round Derek drain was placed in the wound bed and brought out through a distal stab wound and attached to a bulb drain. The flap was then sutured closed using multiple interrupted 3-0 Vicryl dermal sutures followed by multiple mattress sutures of 3-0 and 4-0 nylon. EBL: 10 mL Post-operative Condition: stable Disposition: PACU
[2023-01-06 17:23] VITALS: BP 134/94; PULSE 91; RESP 12; TEMP 36.6; O2SAT 97
[2023-01-06] MEDS: OXYCODONE IR 5 MG TABLET PO ×2 (17:25→18:15)
[2023-01-06 17:27] VITALS: BP 137/80; PULSE 90; RESP 16; O2SAT 97
[2023-01-06 17:33] VITALS: BP 137/84; PULSE 91; RESP 14; TEMP 36.4; O2SAT 96
--- NOTE | 2023-01-06 18:40 | SUR.PHASEII ---
Derek drain not maintaining suction, dsg changes by MD Schaffer. Pt given instruction by stating if bulb will not maintain suction tomorrow, contact the office to have drain removed.
== END 2023-01-06 18:41 | disposition home or self-care (01) ==
PROVIDERS: PCP Family Medicine; Referring Provider Surgery; Visit Provider Surgery
PROC: (CPT 14301; principal; 2023-01-06 14:30)
PROC: (CPT 14301; 2023-01-06 14:30)
DX: S41.102A Unspecified open wound of left upper arm, initial encounter (principal); S81.802A Unspecified open wound, left lower leg, initial encounter
CPT/HCPCS: 14301; 11042; 14302; 87070; 87075; 87205; J0131; J0171; J0690; J2405; J2704; J3010; Q9968

== ENCOUNTER → 2023-01-14 15:15 | Outpatient (CLI) | payer MEDICARE, MEDICAID, SELFPAY ==
[2022-09-10 10:46] VITALS: BMI 27.4
== END ==
PROVIDERS: PCP Family Medicine; Referring Provider Surgery; Visit Provider Surgery
DX: L88 Pyoderma gangrenosum (principal); L97.822 Non-pressure chronic ulcer of other part of left lower leg with fat layer exposed; L53.9 Erythematous condition, unspecified
CPT/HCPCS: 99213

== ENCOUNTER → 2023-01-21 13:59 | Outpatient (CLI) | payer MEDICARE, MEDICAID, SELFPAY ==
[2023-01-14 15:25] VITALS: BMI 27.4
== END ==
PROVIDERS: PCP Family Medicine; Referring Provider Surgery; Visit Provider Surgery
DX: Z09 Encounter for follow-up examination after completed treatment for conditions other than malignant neoplasm (principal); L88 Pyoderma gangrenosum; L97.822 Non-pressure chronic ulcer of other part of left lower leg with fat layer exposed; T81.31XA Disruption of external operation (surgical) wound, not elsewhere classified, initial encounter; S51.802A Unspecified open wound of left forearm, initial encounter
CPT/HCPCS: 11042; 97602; 99213; 99214

== ENCOUNTER → 2023-01-28 14:18 | Outpatient (CLI) | payer MEDICARE, MEDICAID, SELFPAY ==
[2023-01-14 15:25] VITALS: BMI 27.4
== END ==
PROVIDERS: PCP Family Medicine; Referring Provider Surgery; Visit Provider Surgery
DX: L88 Pyoderma gangrenosum (principal); L97.822 Non-pressure chronic ulcer of other part of left lower leg with fat layer exposed; S41.102A Unspecified open wound of left upper arm, initial encounter; T81.31XA Disruption of external operation (surgical) wound, not elsewhere classified, initial encounter; L53.9 Erythematous condition, unspecified
CPT/HCPCS: 11042

== ENCOUNTER → 2023-02-02 14:59 | Outpatient (CLI) | payer MEDICARE, MEDICAID, SELFPAY ==
[2023-01-14 15:25] VITALS: BMI 27.4
== END ==
PROVIDERS: PCP Family Medicine; Referring Provider Surgery; Visit Provider Surgery
DX: L88 Pyoderma gangrenosum (principal); L97.822 Non-pressure chronic ulcer of other part of left lower leg with fat layer exposed; T81.31XA Disruption of external operation (surgical) wound, not elsewhere classified, initial encounter; S41.102A Unspecified open wound of left upper arm, initial encounter; R60.0 Localized edema
CPT/HCPCS: 97607

== ENCOUNTER → 2023-02-04 13:39 | Outpatient (CLI) | payer MEDICARE, MEDICAID, SELFPAY ==
[2023-01-14 15:25] VITALS: BMI 27.4
== END ==
PROVIDERS: PCP Family Medicine; Referring Provider Surgery; Visit Provider Surgery
DX: L88 Pyoderma gangrenosum (principal); L97.222 Non-pressure chronic ulcer of left calf with fat layer exposed; T81.31XD Disruption of external operation (surgical) wound, not elsewhere classified, subsequent encounter; L03.032 Cellulitis of left toe
CPT/HCPCS: 11042; 97607; 99213

== ENCOUNTER → 2023-02-19 13:53 | Outpatient (CLI) | payer MEDICARE, MEDICAID, SELFPAY ==
[2023-01-14 15:25] VITALS: BMI 27.4
== END ==
PROVIDERS: PCP Family Medicine; Referring Provider Surgery; Visit Provider Surgery
DX: T81.31XA Disruption of external operation (surgical) wound, not elsewhere classified, initial encounter (principal); S51.802A Unspecified open wound of left forearm, initial encounter; R60.0 Localized edema
CPT/HCPCS: 11042; 99213

== ENCOUNTER → 2023-02-20 15:46 | Outpatient (CLI) | payer MEDICARE, MEDICAID, SELFPAY ==
[2023-01-14 15:25] VITALS: BMI 27.4
[2023-02-20 16:55] LABS: Add Manual Diff / Slide Review NO; Basophils Absolute Auto 0 /uL (0-100); Basophils Percent Auto 0.2 % (0-2); Eosinophils Absolute Auto 0 /uL (0-450); Hematocrit 31.2 % (36-46); Hemoglobin 10.5 g/dL (12.0-16.0); Lymphocytes Absolute Auto 1300 /uL (1100-4500); Lymphocytes Percent Auto 10.9 % (25-40); Mean Corpuscular HGB Conc 33.5 % (30-36); Mean Corpuscular Hemoglobin 31.5 PG (26-34); Mean Corpuscular Volume 93.9 fL (80-100); Monocytes Absolute Auto 700 /uL (0-900); Monocytes Percent Auto 6.1 % (3-14); Neutrophils Absolute Auto 9800 /uL (1500-7000); Neutrophils Percent Auto 82.8 % (50-75); Platelet Count 596 X10^3/uL (150-400); Red Blood Cell Count 3.32 X10^6/uL (4.0-5.2); Red Cell Distribution Width 15.2 % (11.6-14.8); White Blood Cell Count 11.8 X10^3/uL (4.5-11.0)
[2023-02-20 17:21] LABS: HEMOLYSIS < 15 (0-50); Iron 48 ug/dL (37-170)
[2023-02-20 17:33] LABS: Percent Iron Saturation 12 % (15-50); Total Iron Binding Capacity 397 ug/dL (265-497); Transferrin 360 mg/dL (206-381)
[2023-02-20 19:31] LABS: Ferritin 71 ng/mL (11-264)
== END ==
PROVIDERS: PCP Family Medicine; Referring Provider Family Medicine; Visit Provider Family Medicine
DX: D64.9 Anemia, unspecified (principal); R53.82 Chronic fatigue, unspecified
CPT/HCPCS: 36415; 82728; 83540; 83550; 85025

== ENCOUNTER → 2023-02-27 12:58 | Outpatient (CLI) | payer MEDICARE, MEDICAID, SELFPAY ==
[2023-01-14 15:25] VITALS: BMI 27.4
--- NOTE | 2023-02-27 12:59 | DI.MG.S_ITS ---
BILATERAL DIGITAL SCREENING MAMMOGRAM 3D/2D WITH CAD: 02/27/2023 CLINICAL: Routine screening. Family history of breast cancer. Additional films were requested but not obtained. There are scattered areas of fibroglandular density in both breasts (category b / 25%-50% glandular tissue). Current study was also evaluated with a Computer Aided Detection (CAD) system. No significant masses, calcifications, or other findings are seen in either breast. IMPRESSION: NEGATIVE There is no mammographic evidence of malignancy. A 1 year screening mammogram is recommended. Based on the Tyrer Cuzick model (a risk assessment model) the patient's lifetime risk is 6.1% and her 10 year risk is 1.7%. According to the ACR, ACS, and NCCN guidelines, an annual breast MRI exam along with mammogram is recommended if the patient's lifetime risk is 20% or greater. This exam was interpreted at Station ID: [id number]. NOTE: For mammograms, a report in lay terms will be sent to the patient. Approximately 15% of breast malignancies will not be visualized mammographically. In the management of a palpable breast mass, a negative mammogram must not discourage biopsy of a clinically suspicious lesion. Electronically Signed By: Ash Erwin M.D. acr/penrad:02/27/2023 14:24:50 letter sent: Normal Exam ACR BI-RADS Category 1: Negative [id number]
== END ==
PROVIDERS: PCP Family Medicine; Referring Provider Family Medicine; Visit Provider Family Medicine
DX: Z12.31 Encounter for screening mammogram for malignant neoplasm of breast (principal); Z80.3 Family history of malignant neoplasm of breast
CPT/HCPCS: 77063; 77067

== ENCOUNTER → 2023-03-12 14:32 | Outpatient (CLI) | payer MEDICARE, MEDICAID, SELFPAY ==
[2023-01-14 15:25] VITALS: BMI 27.4
== END ==
LOC: WC 14:34
PROVIDERS: PCP Family Medicine; Referring Provider Surgery; Visit Provider Surgery
DX: L88 Pyoderma gangrenosum (principal); L97.822 Non-pressure chronic ulcer of other part of left lower leg with fat layer exposed; T81.31XA Disruption of external operation (surgical) wound, not elsewhere classified, initial encounter; R60.0 Localized edema; M35.2 Behcet's disease; M79.7 Fibromyalgia
CPT/HCPCS: 11042

== ENCOUNTER → 2023-04-02 14:29 | Outpatient (CLI) | payer MEDICARE, MEDICAID, SELFPAY ==
[2023-01-14 15:25] VITALS: BMI 27.4
== END ==
LOC: WC 14:31
PROVIDERS: PCP Family Medicine; Referring Provider Family Medicine; Visit Provider Surgery
DX: L88 Pyoderma gangrenosum (principal); T81.89XA Other complications of procedures, not elsewhere classified, initial encounter; S41.102A Unspecified open wound of left upper arm, initial encounter; M35.2 Behcet's disease; M79.7 Fibromyalgia
CPT/HCPCS: 11042; 99213